=== PATIENT | female | born 1955 | race Caucasian/White ===

== ENCOUNTER 2019-03-30 11:10 | Outpatient (CLI) | payer MEDICARE, SELFPAY ==
[2019-03-30 11:29] LABS: Basophils Absolute Auto 0.05 K/mm3 (0.00-0.10); Basophils Percent Auto 0.9 % (0.0-1.0); Eosinophils Absolute Auto 0.15 K/mm3 (0.02-0.50); Eosinophils Percent Auto 2.6 % (1.0-6.0); Hematocrit 40.7 % (35.0-42.0); Hemoglobin 13.6 g/dL (11.7-13.8); Immature Granulocyte Absolute 0.01 K/mm3 (0.00-0.00); Immature Granulocyte Percent A 0.2 % (0.0-0.0); Lymphocytes Absolute Auto 2.04 K/mm3 (1.10-4.50); Lymphocytes Percent Auto 34.7 % (18.0-42.0); Mean Corpuscular HGB Conc 33.4 g/dL (32.0-36.0); Mean Corpuscular Hemoglobin 29.4 pg (27.0-31.0); Mean Corpuscular Volume 87.9 fL (78.0-102.0); Mean Platelet Volume 9.5 fl (9.2-11.8); Monocytes Absolute Auto 0.34 K/mm3 (0.10-0.90); Monocytes Percent Auto 5.8 % (2.0-11.0); Neutrophils Absolute Auto 3.3 K/mm3 (1.7-7.2); Neutrophils Percent Auto 55.8 % (50.0-70.0); Platelet Count Result 308 K/mm3 (150-420); Red Blood Count 4.63 M/mm3 (4.20-5.40); White Blood Count 5.9 K/mm3 (4.8-10.8)
[2019-03-30 11:34] LABS: Add Urine Microscopic? YES; Appearance Urine Sl Cloudy (Clear); Bilirubin Urine Negative (Negative); Blood Urine Negative (Negative); Color Urine Yellow (Yellow); Glucose Urine UA Negative (Negative); Ketones Urine Negative (Negative); Leukocyte Esterase Ur 1+ (Negative); Nitrate Urine Negative (Negative); Protein Urine Negative (Negative); pH Urine 7.5 (5.0-8.0)
[2019-03-30 12:37] LABS: Creatinine Urine 73.56 mg/dL (40-278); MALB Creatinine Ratio 8.4 mg/g (0-30); Microalbumin Urine Random 6.2 mg/L
[2019-03-30 12:49] LABS: Alanine Aminotransferase 16 U/L (14-59); Albumin Level 3.9 g/dL (3.4-5.0); Alkaline Phosphatase 78 U/L (46-116); Anion Gap 12.5 mmol/L (7-16); Aspartate Amino Transferase 13 U/L (15-37); Bilirubin,Total 0.5 mg/dL (0.00-1.00); Blood Urea Nitrogen 16 mg/dL (7-18); Carbon Dioxide 28 mmol/L (21-32); Chloride 106 mmol/L (98-108); Cholesterol 204 mg/dL (0-200); Creatine Kinase 46 U/L (26-192); Estimated Glomerular Filt Rate > 60; Free T3 2.36 pg/mL (2.18-3.98); Free T4 Free Thyroxine 0.94 ng/dL (0.76-1.46); Glucose 115 mg/dL (70-99); HDL Direct 55 mg/dL (40-60); LDL Cholesterol Calculated 130 mg/dL (<130); Osmolality Calculated 296 mOsm/kg (285-295); Potassium 4.5 mmol/L (3.5-5.1); Sodium 142 mmol/L (136-145); Thyroid Stimulating Hormone 3.57 uIU/mL (0.36-3.74); Total Protein 6.9 g/dL (6.4-8.2); Triglycerides 97 mg/dL (0-150)
[2019-03-30 13:12] LABS: RBC Urine 0-2 /hpf (0-2); WBC Urine 0-3 /hpf (0-3)
[2019-03-30 13:13] LABS: Bacteria Urine 1+ /hpf; Squamous Epithelial Cell Urine Few /hpf (Few)
[2019-03-30 13:14] LABS: Amorphous Sediment Urine Moderate; Mucus Urine Few /lpf
[2019-04-01 18:13] LABS: Vitamin D 25 Hydroxy 43 ng/mL (30-100)
== END 2019-03-30 11:11 | disposition home or self-care (01) ==
PROVIDERS: PCP Internal Medicine; Visit Provider Internal Medicine
DX: E78.2 Mixed hyperlipidemia (principal); I10 Essential (primary) hypertension; E11.9 Type 2 diabetes mellitus without complications; M81.0 Age-related osteoporosis without current pathological fracture; E03.4 Atrophy of thyroid (acquired)
CPT/HCPCS: 36415; 80053; 80061; 81001; 82043; 82306; 82550; 84439; 84443; 84481; 85025

== ENCOUNTER 2019-09-07 12:44 | Outpatient (CLI) | payer MEDICARE, OTHER, SELFPAY ==
--- NOTE | ~2019-09-07 | MM_ITS ---
EXAMINATION: MM screening [facility] BI w [place]akia HISTORY: Screening mammogram TECHNIQUE: Craniocaudal and mediolateral oblique 3-D tomosynthesis images were obtained and synthetic 2-D images were generated. CAD analysis was submitted and interpreted. COMPARISON: Comparison to multiple prior studies sequentially, with oldest reviewed study dated 05/31. BREAST PARENCHYMAL COMPOSITION: There are scattered areas of fibroglandular density. FINDINGS: There is no evidence of suspicious mass, calcification, or architectural distortion to sugg est malignancy in either breast. There has been no suspicious interval change. IMPRESSION: 1. No mammographic evidence of malignancy. 2. Recommend routine screening mammography in one year. BI-RADS Category 1: Negative Reviewed, dictated and finalized at location A.
== END 2019-09-07 12:45 | disposition home or self-care (01) ==
LOC: CHSIMG 12:45
PROVIDERS: PCP Internal Medicine; Visit Provider Internal Medicine
DX: Z12.31 Encounter for screening mammogram for malignant neoplasm of breast (principal)
CPT/HCPCS: 77063; 77067

== ENCOUNTER 2019-10-12 12:23 | Outpatient (CLI) | payer MEDICARE, BC, OTHER, SELFPAY ==
[2019-10-12 12:34] LABS: Basophils Absolute Auto 0.05 K/mm3 (0.00-0.10); Basophils Percent Auto 0.8 % (0.0-1.0); Eosinophils Absolute Auto 0.19 K/mm3 (0.02-0.50); Hematocrit 41.8 % (35.0-42.0); Hemoglobin 13.7 g/dL (11.7-13.8); Immature Granulocyte Absolute 0.02 K/mm3 (0.00-0.00); Immature Granulocyte Percent A 0.3 % (0.0-0.0); Lymphocytes Absolute Auto 2.15 K/mm3 (1.10-4.50); Mean Corpuscular HGB Conc 32.8 g/dL (32.0-36.0); Mean Corpuscular Hemoglobin 28.9 pg (27.0-31.0); Mean Corpuscular Volume 88.2 fL (78.0-102.0); Mean Platelet Volume 9.2 fl (9.2-11.8); Monocytes Absolute Auto 0.33 K/mm3 (0.10-0.90); Monocytes Percent Auto 5.2 % (2.0-11.0); Neutrophils Absolute Auto 3.6 K/mm3 (1.7-7.2); Neutrophils Percent Auto 56.7 % (50.0-70.0); Platelet Count Result 286 K/mm3 (150-420); Red Blood Count 4.74 M/mm3 (4.20-5.40); Red Cell Distribution Width 12.7 % (11.6-14.4); White Blood Count 6.3 K/mm3 (4.8-10.8)
[2019-10-12] MEDS: DENOSUMAB 60 MG/ML SYRINGE SUB-Q (12:37)
[2019-10-12 12:42] LABS: Add Urine Microscopic? YES; Appearance Urine Clear (Clear); Bilirubin Urine Negative (Negative); Blood Urine Negative (Negative); Color Urine Yellow (Yellow); Glucose Urine UA Negative (Negative); Ketones Urine Negative (Negative); Leukocyte Esterase Ur 2+ LEU/UL (Negative); Nitrate Urine Negative (Negative); Protein Urine Negative (Negative); Specific Grav Ur 1.015 (1.010-1.020)
[2019-10-12 12:49] LABS: Bacteria Urine 1+ /hpf; RBC Urine 0-2 /hpf (0-2); Squamous Epithelial Cell Urine Few /hpf (Few)
[2019-10-12 12:53] LABS: Hemoglobin A1C 6.6 % (<5.7)
[2019-10-12 13:40] LABS: Creatinine Urine 192.49 mg/dL (40-278)
[2019-10-12 13:43] LABS: MALB Creatinine Ratio 6.4 mg/g (0-30); Microalbumin Urine Random 12.4 mg/L
[2019-10-12 14:08] LABS: Alanine Aminotransferase 17 U/L (14-59); Albumin Level 3.8 g/dL (3.4-5.0); Alkaline Phosphatase 92 U/L (46-116); Anion Gap 10 mmol/L (8-16); Aspartate Amino Transferase 17 U/L (15-37); Bilirubin,Total 0.6 mg/dL (0.00-1.00); Blood Urea Nitrogen 14 mg/dL (7-18); Calcium 8.9 mg/dL (8.5-10.1); Carbon Dioxide 27 mmol/L (21-32); Chloride 105 mmol/L (98-108); Cholesterol 188 mg/dL (0-200); Creatine Kinase 69 U/L (26-192); Estimated Glomerular Filt Rate > 60; Free T3 2.15 pg/mL (2.18-3.98); Free T4 Free Thyroxine 1.12 ng/dL (0.76-1.46); Glucose 102 mg/dL (70-99); HDL Direct 47 mg/dL (40-60); LDL Cholesterol Calculated 120 mg/dL (<130); Osmolality Calculated 294 mOsm/kg (285-295); Potassium 4.3 mmol/L (3.5-5.1); Sodium 142 mmol/L (136-145); Thyroid Stimulating Hormone 2.79 uIU/mL (0.36-3.74); Total Protein 6.8 g/dL (6.4-8.2); Triglycerides 103 mg/dL (0-150)
[2019-10-19 14:42] LABS: Vitamin D 25 Hydroxy 62 ng/mL (30-100)
== END 2019-10-12 12:24 | disposition home or self-care (01) ==
LOC: CHSTREATRM 12:25
PROVIDERS: PCP Internal Medicine; Visit Provider Internal Medicine
DX: M81.0 Age-related osteoporosis without current pathological fracture (principal); E78.2 Mixed hyperlipidemia; E11.9 Type 2 diabetes mellitus without complications; R31.21 Asymptomatic microscopic hematuria; E03.4 Atrophy of thyroid (acquired); R82.90 Unspecified abnormal findings in urine
CPT/HCPCS: 36415; 80053; 80061; 81001; 82043; 82306; 82550; 83036; 84439; 84443; 84481; 85025; 87077; 87086; 87088; 96372; J0897

== ENCOUNTER 2019-12-03 10:57 | Outpatient (CLI) | payer MEDICARE, SELFPAY ==
[2019-12-03 22:31] LABS: SARS-CoV-2 RNA PCR Negative
== END 2019-12-03 10:58 | disposition home or self-care (01) ==
LOC: CHSLAB 11:00
PROVIDERS: PCP Internal Medicine; Visit Provider Internal Medicine
DX: R05 Cough (principal); J02.9 Acute pharyngitis, unspecified; Z20.828 Contact with and (suspected) exposure to other viral communicable diseases
CPT/HCPCS: 87635; C9803; U0003

== ENCOUNTER 2019-12-06 15:49 | Outpatient (CLI) | payer MEDICARE, OTHER, SELFPAY ==
--- NOTE | ~2019-12-06 | XR_ITS ---
EXAMINATION: XR chest 2V 12/06/2019 16:08 INDICATION: Cough, shortness of breath and wheezing PROCEDURE: PA and lateral views of the chest COMPARISON: Comparison to multiple prior studies sequentially, with oldest reviewed study dated 02/2015. FINDINGS: The lungs are clear. The cardiomediastinal silhouette is within normal limits. There are no pleural effusions. There is no pneumothorax suspected. Large hiatal hernia. IMPRESSION: 1: NO ACUTE CARDIOPULMONARY DISEASE. Reviewed, dictated and finalized at location B.
[2019-12-06 15:59] LABS: Basophils Absolute Auto 0.07 K/mm3 (0.00-0.10); Basophils Percent Auto 0.9 % (0.0-1.0); Eosinophils Absolute Auto 0.32 K/mm3 (0.02-0.50); Eosinophils Percent Auto 4.2 % (1.0-6.0); Hematocrit 38.6 % (35.0-42.0); Hemoglobin 12.7 g/dL (11.7-13.8); Immature Granulocyte Absolute 0.02 K/mm3 (0.00-0.00); Immature Granulocyte Percent A 0.3 % (0.0-0.0); Lymphocytes Absolute Auto 2.65 K/mm3 (1.10-4.50); Lymphocytes Percent Auto 34.9 % (18.0-42.0); Mean Corpuscular HGB Conc 32.9 g/dL (32.0-36.0); Mean Corpuscular Hemoglobin 29.3 pg (27.0-31.0); Mean Corpuscular Volume 89.1 fL (78.0-102.0); Mean Platelet Volume 9.5 fl (9.2-11.8); Monocytes Absolute Auto 0.61 K/mm3 (0.10-0.90); Neutrophils Absolute Auto 3.9 K/mm3 (1.7-7.2); Neutrophils Percent Auto 51.7 % (50.0-70.0); Platelet Count Result 289 K/mm3 (150-420); Red Blood Count 4.33 M/mm3 (4.20-5.40); Red Cell Distribution Width 13.2 % (11.6-14.4); White Blood Count 7.6 K/mm3 (4.8-10.8)
[2019-12-06 16:31] LABS: Alanine Aminotransferase 20 U/L (14-59); Albumin Level 3.8 g/dL (3.4-5.0); Alkaline Phosphatase 101 U/L (46-116); Aspartate Amino Transferase 10 U/L (15-37); Bilirubin,Total 0.5 mg/dL (0.00-1.00); Blood Urea Nitrogen 11 mg/dL (7-18); Calcium 8.8 mg/dL (8.5-10.1); Carbon Dioxide 28 mmol/L (21-32); Estimated Glomerular Filt Rate > 60; Glucose 78 mg/dL (70-99); Total Protein 6.8 g/dL (6.4-8.2)
[2019-12-06 16:41] LABS: Anion Gap 9 mmol/L (8-16); Chloride 105 mmol/L (98-108); Osmolality Calculated 292 mOsm/kg (285-295); Potassium 3.9 mmol/L (3.5-5.1); Sodium 142 mmol/L (136-145)
== END 2019-12-06 15:50 | disposition home or self-care (01) ==
LOC: CHSLAB 15:51
PROVIDERS: PCP Internal Medicine; Visit Provider Internal Medicine
DX: R05 Cough (principal); R06.2 Wheezing
CPT/HCPCS: 36415; 71046; 80053; 85025

== ENCOUNTER 2019-12-13 14:35 | Outpatient (CLI) | payer MEDICARE, SELFPAY ==
[2019-12-14 14:10] LABS: SARS-CoV-2 RNA PCR Negative
== END 2019-12-13 14:36 | disposition home or self-care (01) ==
LOC: CHSLAB 14:37
PROVIDERS: PCP Internal Medicine; Visit Provider Internal Medicine
DX: Z20.828 Contact with and (suspected) exposure to other viral communicable diseases (principal)
CPT/HCPCS: 87635; C9803; U0003

== ENCOUNTER 2020-01-12 12:11 | Outpatient (CLI) | payer MEDICARE, SELFPAY ==
[2020-01-12 12:58] LABS: SARS-CoV-2 Ag Negative (Negative)
== END 2020-01-12 12:12 | disposition home or self-care (01) ==
LOC: CHSLAB 12:13
PROVIDERS: PCP Internal Medicine; Visit Provider Internal Medicine
DX: Z20.828 Contact with and (suspected) exposure to other viral communicable diseases (principal)
CPT/HCPCS: 87426

== ENCOUNTER 2020-01-18 16:24 | Outpatient (CLI) | payer MEDICARE, SELFPAY ==
[2020-01-18 17:49] LABS: SARS-CoV-2 Ag Positive (Negative)
== END 2020-01-18 16:25 | disposition home or self-care (01) ==
LOC: CHSLAB 16:27
PROVIDERS: PCP Internal Medicine; Visit Provider Internal Medicine
DX: U07.1 COVID-19 (principal)
CPT/HCPCS: 87426

== ENCOUNTER 2020-01-25 13:34 | Emergency (ER) | payer MEDICARE, OTHER, SELFPAY ==
[2020-01-25] VITALS (8 sets, daily range): BP systolic 131–147; BP diastolic 78–89; PULSE 78–97; RESP 18–27; TEMP 36.7; O2SAT 95–99
--- NOTE | ~2020-01-25 | CT_ITS ---
EXAMINATION: CTA chest PE protocol DATE: 01/25/2020 15:13 INDICATION: Shortness of breath. COVID-19 positive. TECHNIQUE: Computed tomography angiography (CTA) of the chest was performed with 100 mL Omnipaque-350 intravenous contrast timed to evaluate the pulmonary arteries. Coronal maximum intensity projection 3D-reconstructions were created by the technologist. Automated exposure control and iterative reconst ruction technique were employed. The dose-length product was 220.98 mGy-cm. COMPARISON: Chest single view 01/25/2020 FINDINGS: There are patchy airspace and groundglass opacities in the mid and lower lung zones. Calcif ied pulmonary nodules and calcified hilar lymph nodes are consistent with old granulomatous disease. No pleural effusion. The heart size is normal. No pericardial effusion. There is a large sliding hiat al hernia. There is no pulmonary embolus. There are changes of cholecystectomy. 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 There is a chronic compression fracture of T8. IMPRESSION: 1. No pulmonary embolism. 2. Patchy airspace and groundglass opacities in the mid and lower lung zones, consistent with COVID-1 9 pneumonia. 3. Large sliding hiatal hernia. Reviewed, dictated and finalized at location B. F CARRIER IMPRESSION: 1. No pulmonary embolism. 2. Patchy airspace and groundglass opacities in the mid and lower lung zones, c onsistent with COVID-19 pneumonia. 3. Large sliding hiatal hernia.
--- NOTE | ~2020-01-25 | XR_ITS ---
EXAMINATION: XR chest 1V portable DATE: 01/25/2020 14:20 INDICATION: Cough. TECHNIQUE: A single frontal view of the chest was obtained. COMPARISON: Chest 2 views 12/06/2019, CT abdomen and pelvis 01/29/2016 FINDINGS: There are mild airspace opacities in right lower lung zone and left mid and lower lung zone s. No pleural effusion or pneumothorax. The heart size is normal. There is a large hiatal hernia. David gical clips in the right upper quadrant are likely from cholecystectomy. IMPRESSION: 1. Mild airspace opacities in right lower lung zone and left mid and lower lung zones, consistent wit h atelectasis versus pneumonia 2. Large hiatal hernia. Reviewed, dictated and finalized at location B. ET ENGINE TESTER IMPRESSION: 1. Mild airspace opacities in right lower lung zone and left mid and lower lung zones, consistent with atelectasis versus pneumonia 2. Large hiatal hernia.
[2020-01-25 14:05] LABS: Basophils Percent Auto 0.5 % (0.2-1.2); Eosinophils Absolute Auto 0.1 K/mm3 (0-0.3); Eosinophils Percent Auto 1.5 % (0-4.4); Hemoglobin 15.2 g/dL (12.0-15.0); Immature Granulocyte Absolute 0.03 K/mm3 (0.00-0.031); Immature Granulocyte Percent A 0.4 % (0-0.5); Lymphocytes Absolute Auto 2.54 K/mm3 (0.9-3.2); Lymphocytes Percent Auto 32.4 % (18.3-44.2); Mean Corpuscular HGB Conc 34.5 g/dl (32-36); Mean Corpuscular Hemoglobin 29.5 pg (26-34); Mean Corpuscular Volume 85.4 fl (80-100); Mean Platelet Volume 9.7 fl (7.4-10.4); Monocytes Absolute Auto 0.4 K/mm3 (0.1-0.6); Monocytes Percent Auto 5.6 % (2.6-8.5); Neutrophils Absolute Auto 4.7 K/mm3 (1.3-6.7); Neutrophils Percent Auto 59.6 % (45.5-73.1); Platelet Count Result 300 k/mm3 (150-375); Red Blood Count 5.15 M/mm3 (4.2-5.4); Red Cell Distribution Width 13.1 % (11.5-14.5); White Blood Count 7.9 K/mm3 (4.5-10.0)
[2020-01-25 14:15] LABS: INR 0.9; Prothrombin Time 13.2 Seconds (11.1-14.7)
[2020-01-25 14:17] LABS: Alanine Aminotransferase 17 U/L (4-35); Albumin Level 4.1 g/dL (3.5-5.1); Alkaline Phosphatase 93 U/L (38-126); Anion Gap 10 mmol/L (8-16); Aspartate Amino Transferase 30 U/L (14-36); Bilirubin,Total 0.9 mg/dL (0.2-1.3); Blood Urea Nitrogen 14 mg/dL (7-17); Calcium 9.7 mg/dL (8.4-10.2); Carbon Dioxide 25 mmol/L (22-30); Chloride 107 mmol/L (98-107); Estimated CRCL calculation 57 ml/min; Estimated Glomerular Filt Rate > 60; Glucose 96 mg/dL (65-105); Potassium 3.8 mmol/L (3.4-5.0); Sodium 142 mmol/L (137-145)
[2020-01-25 14:28] LABS: Troponin I < 0.012 ng/mL (0.000-0.034)
[2020-01-25 14:48] LABS: D Dimer 0.59 ug/mL (<0.48)
--- NOTE | 2020-01-25 16:25 | ED.URI ---
HPI - URI/Sore Throat General Chief Complaint: Upper Respiratory Infection Stated Complaint: COVID POSTIVE NEEDS CHEST XRAY Time Seen by Provider: 01/25/20 13:59 Source: patient Mode of arrival: ambulatory Limitations: no limitations History of Present Illness HPI Narrative: Patient 64-year-old female complaining of cough, body aches, fever and shortness of breath started 3 days ago, tested positive for Covid yesterday, was told by her PCP to go to the emergency room and get a chest x-ray. Patient denies any chest pain, dull pain, nausea, vomiting, diarrhea or rash. Related Data Allergies Allergy/AdvReac Type Severity Reaction Status Date / Time erythromycin base Allergy Unknown VOMITING Verified 04/09/18 09:26 AND DIARRHEA thiopental Allergy Unknown SODIUM Verified 04/09/18 14:16 PENTOTHAL- DENTIST SAID I STOPPED BREATHING Review of Systems Review of Systems: All systems reviewed & are unremarkable except as noted in HPI and below Constitutional: Constitutional: Denies body ache(s), Denies chills, Denies excessive sweating, Denies headache(s), Denies lethargy and Denies weight loss Eyes: Eyes: Denies blurry vision, Denies change in vision and Denies loss of vision ENT: Denies dizziness, Denies ear discharge, Denies headache(s), Denies lip swelling, Denies epistaxis, Denies nasal congestion, Denies neck pain, Denies throat swelling and Denies tongue swelling Cardiovascular: Cardiovascular: Denies chest pain, Denies chest pain at rest, Denies chest pain with activity, Denies diaphoresis, Denies rapid heart rate, Denies edema, Denies irregular heart rhythm, Denies lightheadedness, Denies palpitations, Denies dyspnea and Denies dyspnea on exertion Respiratory: Respiratory: Denies chest congestion and Denies hemoptysis Gastrointestinal: Gastrointestinal: Denies abdominal pain, Denies melena, Denies hematochezia, Denies diarrhea, Denies nausea, Denies vomiting and Denies hematemesis Musculoskeletal: Musculoskeletal: Denies abnormal gait, Denies deformity, Denies joint swelling, Denies limited range of motion, Denies neck pain and Denies numbness Neurologic: Denies Abnormal speech present, Denies abnormal gait, Denies confusion, Denies dizziness, Denies headache(s), Denies focal weakness, Denies loss of vision, Denies numbness, Denies Other visual disturbances, Denies Sensory deficit (Neuro) and Denies weakness Psychiatric: Psychiatric: Denies confusion, Denies depression, Denies auditory hallucinations, Denies homicidal ideation and Denies suicidal ideation Endocrine: Endocrine: Denies cold intolerance, Denies excessive sweating, Denies fatigue, Denies heat intolerance and Denies palpitations Hematologic/Lymphatic: Hematologic/Lymphatic: Denies easy bleeding and Denies easy bruising Allergic/Immunologic: Allergic/Immunologic: Denies lip swelling, Denies throat swelling and Denies tongue swelling Exam Const: General: cooperative, healthy appearing, comfortable, no acute distress, well developed, alert and awake; No confusion Orientation/consciousness: oriented to person, oriented to place, oriented to time, patient oriented x3 and No confusion Limitations: no limitations HENMT: Head: normal to inspection, normocephalic and atraumatic Ears: hearing grossly normal bilaterally, TM normal on the right and TM normal on the left General nose exam: Normal external nose present, Normal nares present and No nasal discharge present Face and sinus: normal facial exam Mouth: Yes Normal oral and palatal mucosa present, Yes lip normal, Yes tongue normal and Yes oropharynx normal Throat: posterior oropharynx normal, tonsils normal and uvula midline Eyes: General: appearance normal, both eyes and all related structures Pupils: Equal, round and reactive pupils present EOM: EOMs intact bilaterally Neck: Neck: normal visual inspection, full ROM, no lymphadenopathy and no meningeal signs Chest: Chest palpatio
--- NOTE | 2020-01-25 17:53 | ECG_ITS ---
Measurements Intervals [place] Rate: 89 P: 30 MA: 144 QRS: -4 QRSD: 84 T: 35 QT: 342 QTc: 416 Interpretive Statements SINUS RHYTHM NORMAL ECG Electronically Signed On 01-26-2020 7:50:28 LAMP TESTER AND INSPECTOR by Shine Escamilla D.O.
== END 2020-01-25 17:14 | disposition home or self-care (01) ==
PROVIDERS: Emergency Provider Emergency Medicine; PCP Internal Medicine
DX: U07.1 COVID-19 (principal); J12.89 Other viral pneumonia
CPT/HCPCS: 36415; 71045; 71275; 80053; 84484; 85025; 85380; 85610; 85730; 93005; 96374; 99284; J1100; Q9967

== ENCOUNTER 2020-01-28 11:03 | Outpatient (CLI) | payer MEDICARE, SELFPAY | END 2020-01-28 11:04 | disposition home or self-care (01) | LOC: CHSLAB 11:05 | PROVIDERS: PCP Internal Medicine; Visit Provider Internal Medicine | DX: J02.9 Acute pharyngitis, unspecified (principal) | CPT/HCPCS: 87081; 87880 ==

== ENCOUNTER 2020-04-17 10:33 | Outpatient (CLI) | payer MEDICARE, SELFPAY ==
[2020-04-17 10:53] LABS: Add Urine Microscopic? YES; Appearance Urine Clear (Clear); Bilirubin Urine Negative (Negative); Blood Urine Negative (Negative); Color Urine Yellow (Yellow); Glucose Urine UA Negative (Negative); Ketones Urine Negative (Negative); Leukocyte Esterase Ur 1+ (Negative); Nitrate Urine Negative (Negative); Protein Urine Negative (Negative); Urobilinogen Urine 0.2 mg/dL (0.2-1.0)
[2020-04-17 10:59] LABS: MALB Creatinine Ratio 12.8 mg/g (0-30); Microalbumin Urine Random < 13.0 mg/L
[2020-04-17 11:04] LABS: Hemoglobin A1C 6.2 % (<5.7)
[2020-04-17 11:11] LABS: Bacteria Urine 1+ /hpf; RBC Urine 0-2 /hpf (0-2); Squamous Epithelial Cell Urine Many /hpf (Few)
[2020-04-17 12:05] LABS: Alanine Aminotransferase 22 U/L (14-59); Albumin Level 3.9 g/dL (3.4-5.0); Alkaline Phosphatase 87 U/L (46-116); Anion Gap 11 mmol/L (8-16); Aspartate Amino Transferase 15 U/L (15-37); Bilirubin,Total 0.5 mg/dL (0.00-1.00); Blood Urea Nitrogen 12 mg/dL (7-18); Carbon Dioxide 27 mmol/L (21-32); Chloride 103 mmol/L (98-108); Cholesterol 182 mg/dL (0-200); Creatine Kinase 47 U/L (26-192); Estimated Glomerular Filt Rate > 60; Free T3 2.19 pg/mL (2.18-3.98); Free T4 Free Thyroxine 1.02 ng/dL (0.76-1.46); Glucose 112 mg/dL (70-99); HDL Direct 47 mg/dL (40-60); LDL Cholesterol Calculated 108 mg/dL (<130); Osmolality Calculated 292 mOsm/kg (285-295); Sodium 141 mmol/L (136-145); Thyroid Stimulating Hormone 3.07 uIU/mL (0.36-3.74); Total Protein 6.6 g/dL (6.4-8.2); Triglycerides 137 mg/dL (0-150)
[2020-04-19 21:24] LABS: Vitamin D 25 Hydroxy 49 ng/mL (30-100)
== END 2020-04-17 10:34 | disposition home or self-care (01) ==
LOC: CHSLAB 10:35
PROVIDERS: PCP Internal Medicine; Visit Provider Internal Medicine
DX: E11.9 Type 2 diabetes mellitus without complications (principal); I10 Essential (primary) hypertension; E78.2 Mixed hyperlipidemia; M81.0 Age-related osteoporosis without current pathological fracture
CPT/HCPCS: 36415; 80053; 80061; 81001; 82043; 82306; 82550; 83036; 84439; 84443; 84481

== ENCOUNTER 2020-08-31 16:48 | Outpatient (CLI) | payer MEDICARE, OTHER, SELFPAY ==
--- NOTE | ~2020-08-31 | CT_ITS ---
EXAMINATION: CT soft tissue neck w con DATE: 08/31/2020 17:54 INDICATION: Acute lymphadenitis. Right parotid abscess. TECHNIQUE: Computed tomography (CT) of the neck was performed with 75 mL Omnipaque-350 intravenous co ntrast. Automated exposure control and iterative reconstruction technique were employed. The dose-ejssica gth product was 482.12 mGy-cm. COMPARISON: 07/29/2018 FINDINGS: Again seen is asymmetric swelling and subtle increased density of the right parotid gland relative to the left consistent with proctitis which is significantly less severe than on the prior study. No ev idence sialolithiasis, ductal dilation or abscess. Asymmetric mildly enlarged right-sided level 2A an d 2B lymph nodes which are likely reactive. Calcifications at the bilateral lingual tonsils. Paraphar yngeal soft tissues are otherwise unremarkable with no narrowing of the airway. The thyroid and bilat eral submandibular glands are normal. Minimal atherosclerotic calcific a cyst at the bilateral caroti d bulbs without stenosis. Left vertebral artery is dominant and appears to be the exclusive supply of the basilar artery. The vascular the neck is otherwise unremarkable. Mastoid air cells, middle ear c avities and visualized portions of the paranasal sinuses are clear. Mild to moderate cervical spondyl osis. Visualized portions of the upper lungs and mediastinum are unremarkable. IMPRESSION: 1. Right parotitis, relatively mild compared with earlier episode and without evident abscess. 2. Mild likely reactive level 2A and 2B right cervical lymphadenopathy. Reviewed, dictated and finalized at location A. IMPRESSION: 1. Right parotitis, relatively mild compared with earlier episode and without e vident abscess. 2. Mild likely reactive level 2A and 2B right cervical lymphadenopathy.
[2020-08-31 17:10] LABS: Basophils Absolute Auto 0.05 K/mm3 (0.00-0.10); Basophils Percent Auto 0.6 % (0.0-1.0); Eosinophils Absolute Auto 0.12 K/mm3 (0.02-0.50); Eosinophils Percent Auto 1.4 % (1.0-6.0); Hematocrit 35.9 % (35.0-42.0); Hemoglobin 12.1 g/dL (11.7-13.8); Immature Granulocyte Absolute 0.01 K/mm3 (0.00-0.00); Immature Granulocyte Percent A 0.1 % (0.0-0.0); Lymphocytes Absolute Auto 2.13 K/mm3 (1.10-4.50); Lymphocytes Percent Auto 25.6 % (18.0-42.0); Mean Corpuscular HGB Conc 33.7 g/dL (32.0-36.0); Mean Corpuscular Hemoglobin 29.7 pg (27.0-31.0); Mean Platelet Volume 9.6 fl (9.2-11.8); Monocytes Absolute Auto 0.63 K/mm3 (0.10-0.90); Monocytes Percent Auto 7.6 % (2.0-11.0); Neutrophils Absolute Auto 5.4 K/mm3 (1.7-7.2); Neutrophils Percent Auto 64.7 % (50.0-70.0); Platelet Count Result 277 K/mm3 (150-420); Red Blood Count 4.08 M/mm3 (4.20-5.40); Red Cell Distribution Width 13.1 % (11.6-14.4); White Blood Count 8.3 K/mm3 (4.8-10.8)
[2020-08-31 17:22] LABS: Estimated Glomerular Filt Rate 60
[2020-08-31 18:29] LABS: Alanine Aminotransferase 19 U/L (14-59); Albumin Level 3.7 g/dL (3.4-5.0); Alkaline Phosphatase 108 U/L (46-116); Anion Gap 10 mmol/L (8-16); Aspartate Amino Transferase 12 U/L (15-37); Bilirubin,Total 0.5 mg/dL (0.00-1.00); Blood Urea Nitrogen 13 mg/dL (7-18); Calcium 9.3 mg/dL (8.5-10.1); Carbon Dioxide 26 mmol/L (21-32); Chloride 105 mmol/L (98-108); Glucose 83 mg/dL (70-99); Osmolality Calculated 291 mOsm/kg (285-295); Potassium 3.9 mmol/L (3.5-5.1); Sodium 141 mmol/L (136-145)
== END 2020-08-31 16:49 | disposition home or self-care (01) ==
LOC: CHSLAB 16:50
PROVIDERS: PCP Internal Medicine; Visit Provider Internal Medicine
DX: I88.9 Nonspecific lymphadenitis, unspecified (principal); K11.3 Abscess of salivary gland
CPT/HCPCS: 36415; 70491; 80053; 85025; 87040; Q9967

== ENCOUNTER 2020-10-04 13:38 | Outpatient (CLI) | payer MEDICARE, OTHER, SELFPAY ==
--- NOTE | ~2020-10-04 | XR_ITS ---
XR chest 2V DATE: 10/04/2020 18:27 INDICATION: Central chest pain, shortness of breath, cough for 2 days TECHNIQUE: PA and lateral views COMPARISON: 01/25/2020 CT pulmonary scan 01/25/2020 portable AP chest 12/06/2019 PA and lateral chest FINDINGS: Normal heart size. Large hiatal hernia. No hilar or mediastinal enlargement. No pulmonary infiltrate or consolidation, pleural effusion or pulmonary vascular congestion or pneumo thorax. Diffuse osteopenia. Status post cholecystectomy. IMPRESSION: No active cardiopulmonary disease Large hiatal hernia Reviewed, dictated and finalized at location A.
[2020-10-04 14:39] LABS: SARS-CoV-2 RNA PCR Negative (Negative)
== END 2020-10-04 13:39 | disposition home or self-care (01) ==
LOC: CHSLAB 13:41 → CHSIMG 18:17
PROVIDERS: PCP Internal Medicine; Visit Provider Internal Medicine
DX: R05 Cough (principal); J06.9 Acute upper respiratory infection, unspecified; Z20.822 Contact with and (suspected) exposure to COVID-19
CPT/HCPCS: 71046; C9803; U0003; U0005

== ENCOUNTER 2020-10-31 08:03 | Outpatient (CLI) | payer MEDICARE, OTHER, SELFPAY ==
--- NOTE | ~2020-10-31 | DEXA_ITS ---
Bone Density Report Name: Mariann Jacques Age: 65 Sex: Female Ethnicity: White Date of : 1955 Indication: osteopenia; monitoring treatment; height loss; prior fracture; asthma or emphysema; hysterectomy; rheumatoid arthritis; postmenopausal Referring Provider: Mary Nguyen Study: Bone densitometry was performed. Exam Date: October 31, 2020 Accession number: [id number] Bone Density: Region BMD T-score Z-score Classification AP Spine(L1, L2) 0.677 -2.7 -1.0 Osteoporosis Femoral Neck (Left) 0.574 -2.5 -0.9 Osteoporosis Total Hip (Left) 0.721 -1.8 -0.5 Osteopenia Femoral Neck (Right) 0.581 -2.4 -0.8 Osteopenia Total Hip (Right) 0.725 -1.8 -0.5 Osteopenia Femoral Neck Mean 0.577 -2.4 -0.8 Osteopenia Total Hip Mean 0.723 -1.8 -0.5 Osteopenia World Health Organization criteria for BMD impression classify patients as: Normal (T-score at or above -1.0), Osteopenia (T-score between -1.0 and -2.5), or Osteoporosis (T-score at or below -2.5). 10-year Fracture Risk: FRAX not reported because: Some T-score for Spine Total or Hip Total or Femoral Neck at or below -2.5 Prior hip or vertebral fracture Treated for osteoporosis Previous Exams: Region Exam Age BMD T-score BMD Change BMD Change Date g/cm2 vs Baseline vs Previous AP Spine (L1-L2) 10/31/2020 65 0.677 -2.7 -0.048 (-6.7%) -0.048 (-6.7%) 09/02/2012 57 0.725 -2.3 Total Hip(Left) 10/31/2020 65 0.721 -1.8 0.000 (0.0%)# 0.000 (0.0%)# 09/02/2012 57 0.721 -1.8 Total Hip(Right) 10/31/2020 65 0.725 -1.8 0.013 (1.8%)# 0.013 (1.8%)# 09/02/2012 57 0.712 -1.9 *Denotes significance at 95% confidence level, LSC for AP Spine = 0.022 g/cm2, LSC for Total Hip = 0.027 g/cm2 # Denotes dissimilar scan types or analysis methods Clinical Information Provided by Patient: Have had a previous hip or vertebral fracture Has had a low trauma fracture Has rheumatoid arthritis Is being treated for osteoporosis Has the following medical conditions: Asthma or Emphysema, Hysterectomy Patient maximum height was 61 Menopause Age: 39 No regular weight bearing exercise Drinks caffeinated beverages Onset of menses at age 14 Number of children 3 Impression: The patient has established osteoporosis, based on the Total Spine T-score and the existence of a prior fracture. The patient has risk factors, including: previous fracture. No significant bone loss was observed.
--- NOTE | ~2020-10-31 | MM_ITS ---
EXAMINATION: MM screening [facility] BI w nakia HISTORY: Screening TECHNIQUE: Craniocaudal and mediolateral oblique 3-D tomosynthesis images were obtained and synthetic 2-D images were generated. CAD analysis was submitted and interpreted. COMPARISON: Comparison to multiple prior studies sequentially, with oldest reviewed study dated 04/2011. BREAST PARENCHYMAL COMPOSITION: There are scattered areas of fibroglandular density. FINDINGS: There is no evidence of suspicious mass, calcification, or architectural distortion to sugg est malignancy in either breast. There has been no suspicious interval change. IMPRESSION: 1. No mammographic evidence of malignancy. 2. Recommend routine screening mammography in one year. BI-RADS Category 1: Negative Reviewed, dictated and finalized at location A.
[2020-10-31 09:18] LABS: Basophils Absolute Auto 0.05 K/mm3 (0.00-0.10); Basophils Percent Auto 0.9 % (0.0-1.0); Eosinophils Absolute Auto 0.19 K/mm3 (0.02-0.50); Eosinophils Percent Auto 3.4 % (1.0-6.0); Hematocrit 38.8 % (35.0-42.0); Hemoglobin 12.8 g/dL (11.7-13.8); Immature Granulocyte Absolute 0.01 K/mm3 (0.00-0.00); Immature Granulocyte Percent A 0.2 % (0.0-0.0); Lymphocytes Absolute Auto 1.47 K/mm3 (1.10-4.50); Lymphocytes Percent Auto 26.6 % (18.0-42.0); Mean Corpuscular Hemoglobin 29.4 pg (27.0-31.0); Mean Corpuscular Volume 89.2 fL (78.0-102.0); Monocytes Absolute Auto 0.32 K/mm3 (0.10-0.90); Monocytes Percent Auto 5.8 % (2.0-11.0); Neutrophils Absolute Auto 3.5 K/mm3 (1.7-7.2); Neutrophils Percent Auto 63.1 % (50.0-70.0); Platelet Count Result 294 K/mm3 (150-420); Red Blood Count 4.35 M/mm3 (4.20-5.40); Red Cell Distribution Width 12.7 % (11.6-14.4); White Blood Count 5.5 K/mm3 (4.8-10.8)
[2020-10-31 09:20] LABS: Add Urine Microscopic? YES; Appearance Urine Clear (Clear); Bilirubin Urine Negative (Negative); Blood Urine Negative (Negative); Color Urine Light Yellow (Yellow); Glucose Urine UA Negative (Negative); Ketones Urine Negative (Negative); Leukocyte Esterase Ur Trace LEU/UL (Negative); Nitrate Urine Negative (Negative); Protein Urine Negative (Negative); Urobilinogen Urine 0.2 mg/dL (0.2-1.0)
[2020-10-31 09:27] LABS: Creatinine Urine 98.95 mg/dL (40-278); MALB Creatinine Ratio 13.1 mg/g (0-30); Microalbumin Urine Random < 13.0 mg/L
[2020-10-31 09:31] LABS: Hemoglobin A1C 5.5 % (<5.7)
[2020-10-31 09:37] LABS: Bacteria Urine Trace /hpf; RBC Urine None seen /hpf (0-2); Squamous Epithelial Cell Urine Few /hpf (Few); WBC Urine 0-3 /hpf (0-3)
[2020-10-31 10:19] LABS: Alanine Aminotransferase 28 U/L (14-59); Alkaline Phosphatase 81 U/L (46-116); Anion Gap 8 mmol/L (8-16); Aspartate Amino Transferase 15 U/L (15-37); Bilirubin,Total 0.4 mg/dL (0.00-1.00); Blood Urea Nitrogen 14 mg/dL (7-18); Calcium 9.1 mg/dL (8.5-10.1); Carbon Dioxide 30 mmol/L (21-32); Chloride 105 mmol/L (98-108); Cholesterol 174 mg/dL (0-200); Creatine Kinase 61 U/L (26-192); Estimated Glomerular Filt Rate > 60; Free T3 1.61 pg/mL (2.18-3.98); Free T4 Free Thyroxine 1.17 ng/dL (0.76-1.46); Glucose 100 mg/dL (70-99); HDL Direct 48 mg/dL (40-60); LDL Cholesterol Calculated 106 mg/dL (<130); Osmolality Calculated 296 mOsm/kg (285-295); Potassium 4.5 mmol/L (3.5-5.1); Sodium 143 mmol/L (136-145); Thyroid Stimulating Hormone 2.87 uIU/mL (0.36-3.74); Total Protein 6.5 g/dL (6.4-8.2); Triglycerides 100 mg/dL (0-150)
[2020-11-03 13:25] LABS: Vitamin D 25 Hydroxy 69 ng/mL (30-100)
== END 2020-10-31 08:04 | disposition home or self-care (01) ==
PROVIDERS: PCP Internal Medicine; Visit Provider Internal Medicine
DX: M81.0 Age-related osteoporosis without current pathological fracture (principal); E11.9 Type 2 diabetes mellitus without complications; R31.21 Asymptomatic microscopic hematuria; E03.4 Atrophy of thyroid (acquired); Z12.31 Encounter for screening mammogram for malignant neoplasm of breast
CPT/HCPCS: 36415; 77063; 77067; 77080; 80053; 80061; 81001; 82043; 82306; 82550; 83036; 84439; 84443; 84481; 85025

== ENCOUNTER 2021-04-24 10:33 | Outpatient (CLI) | payer MEDICARE, SELFPAY ==
[2021-04-24 10:50] LABS: Basophils Absolute Auto 0.05 K/mm3 (0.00-0.10); Basophils Percent Auto 0.9 % (0.0-1.0); Eosinophils Absolute Auto 0.22 K/mm3 (0.02-0.50); Eosinophils Percent Auto 3.7 % (1.0-6.0); Hemoglobin 13.5 g/dL (11.7-13.8); Immature Granulocyte Absolute 0.01 K/mm3 (0.00-0.00); Immature Granulocyte Percent A 0.2 % (0.0-0.0); Lymphocytes Absolute Auto 2.16 K/mm3 (1.10-4.50); Lymphocytes Percent Auto 36.7 % (18.0-42.0); Mean Corpuscular HGB Conc 32.9 g/dL (32.0-36.0); Mean Corpuscular Hemoglobin 29.2 pg (27.0-31.0); Mean Corpuscular Volume 88.7 fL (78.0-102.0); Monocytes Percent Auto 5.1 % (2.0-11.0); Neutrophils Absolute Auto 3.1 K/mm3 (1.7-7.2); Neutrophils Percent Auto 53.4 % (50.0-70.0); Platelet Count Result 329 K/mm3 (150-420); Red Blood Count 4.62 M/mm3 (4.20-5.40); Red Cell Distribution Width 12.8 % (11.6-14.4); White Blood Count 5.9 K/mm3 (4.8-10.8)
[2021-04-24 11:18] LABS: Add Urine Microscopic? YES; Appearance Urine Clear (Clear); Bilirubin Urine Negative (Negative); Blood Urine Negative (Negative); Color Urine Light Yellow (Yellow); Glucose Urine UA Negative (Negative); Ketones Urine Negative (Negative); Leukocyte Esterase Ur Trace (Negative); Nitrate Urine Negative (Negative); Protein Urine Negative (Negative); Specific Grav Ur 1.015 (1.010-1.020); Urobilinogen Urine 0.2 mg/dL (0.2-1.0)
[2021-04-24 11:37] LABS: Bacteria Urine Trace /hpf; RBC Urine None seen /hpf (0-2); Squamous Epithelial Cell Urine Few /hpf (Few); WBC Urine 0-3 /hpf (0-3)
[2021-04-24 11:48] LABS: Alanine Aminotransferase 17 U/L (14-59); Albumin Level 3.9 g/dL (3.4-5.0); Alkaline Phosphatase 102 U/L (46-116); Anion Gap 9 mmol/L (8-16); Aspartate Amino Transferase 12 U/L (15-37); Bilirubin,Total 0.4 mg/dL (0.00-1.00); Blood Urea Nitrogen 12 mg/dL (7-18); Calcium 8.9 mg/dL (8.5-10.1); Carbon Dioxide 31 mmol/L (21-32); Chloride 104 mmol/L (98-108); Cholesterol 174 mg/dL (0-200); Estimated Glomerular Filt Rate > 60; Free T3 2.23 pg/mL (2.18-3.98); Free T4 Free Thyroxine 1.11 ng/dL (0.76-1.46); Glucose 115 mg/dL (70-99); HDL Direct 53 mg/dL (40-60); LDL Cholesterol Calculated 89 mg/dL (<130); Osmolality Calculated 298 mOsm/kg (285-295); Potassium 4.1 mmol/L (3.5-5.1); Sodium 144 mmol/L (136-145); Total Protein 6.7 g/dL (6.4-8.2); Triglycerides 158 mg/dL (0-150); Vitamin B12 488 pg/mL (193-986)
[2021-04-26 15:47] LABS: Vitamin D 25 Hydroxy 57 ng/mL (30-100)
== END 2021-04-24 10:34 | disposition home or self-care (01) ==
LOC: CHSLAB 10:35
PROVIDERS: PCP Internal Medicine; Visit Provider Internal Medicine
DX: E11.9 Type 2 diabetes mellitus without complications (principal); M81.0 Age-related osteoporosis without current pathological fracture; E78.2 Mixed hyperlipidemia; E03.4 Atrophy of thyroid (acquired); R41.89 Other symptoms and signs involving cognitive functions and awareness
CPT/HCPCS: 36415; 80053; 80061; 81001; 82306; 82607; 83036; 84439; 84443; 84481; 85025

== ENCOUNTER 2021-05-02 09:25 | Outpatient (CLI) | payer MEDICARE, OTHER, SELFPAY ==
--- NOTE | ~2021-05-02 | US_ITS ---
EXAMINATION: US right upper quadrant DATE: 05/02/2021 09:46 INDICATION: Epigastric abdominal pain. Right upper quadrant abdominal pain. TECHNIQUE: Multiple grayscale and Doppler ultrasound images of the abdomen were obtained. COMPARISON: Chest CT 01/25/2020 FINDINGS: The visualized portions of the head and body of the pancreas are normal. The liver is marquita l without focal lesion. There is normal flow in main portal vein. The gallbladder is absent. The comm on duct is normal and measures 3 mm. IMPRESSION: 1. Normal right upper quadrant ultrasound status post cholecystectomy. Reviewed, dictated and finalized at location A.
== END 2021-05-02 09:26 | disposition home or self-care (01) ==
LOC: CHSIMG 09:26
PROVIDERS: PCP Internal Medicine; Visit Provider Internal Medicine
DX: R10.13 Epigastric pain (principal); R10.11 Right upper quadrant pain
CPT/HCPCS: 76705

== ENCOUNTER 2021-05-08 12:47 | Outpatient (CLI) | payer MEDICARE, OTHER, SELFPAY ==
[2021-05-08 12:54] VITALS: BMI 28.3
[2021-05-08 12:57] VITALS: BP 135/72; PULSE 92; RESP 14; TEMP 36.5; O2SAT 97
[2021-05-08] MEDS: DENOSUMAB 60 MG/ML SYRINGE SUB-Q (13:01)
--- NOTE | 2021-05-08 13:06 | PC.NURSE ---
Patient here for Prolia injection. Didn't get it last year r/t covid, but had in 2019. Education given on med. No concerns voiced. Prolia injection administered. Tolerated well. Safe exit of hospital.
== END 2021-05-08 12:48 | disposition home or self-care (01) ==
PROVIDERS: PCP Internal Medicine; Visit Provider Internal Medicine
DX: M81.0 Age-related osteoporosis without current pathological fracture (principal)
CPT/HCPCS: 96372; J0897

== ENCOUNTER 2021-05-18 02:06 | Day surgery (SDC) | payer MEDICARE, OTHER, SELFPAY ==
[2021-05-09 10:47] VITALS: BMI 28.3
--- NOTE | 2021-05-18 10:45 | WPDANESEPPF ---
Anes - Initial Pre Proc Eval Procedure: Operation Date: 05/18/21 13:30 Proposed Procedures p Esophagogastroduodenoscopy - Guerrero Vail MD Date/Time: 05/18/21 10:45 Surgeon: Guerrero Vail MD Pre Op Diagnosis: GERD Patient Data Age: 66 Gender: F Height: 1.55 m Weight: 68.1 kg Allergies Allergy/AdvReac Type Severity Reaction Status Date / Time erythromycin base Allergy Unknown VOMITING Verified 05/18/21 12:18 AND DIARRHEA thiopental Allergy Unknown SODIUM Verified 05/18/21 12:18 PENTOTHAL- DENTIST SAID I STOPPED BREATHING Home Medications Medication Instructions Recorded Confirmed Type levothyroxine 75 mcg PO DAILY 05/08/21 05/18/21 History lovastatin 20 mg PO DAILY 05/08/21 05/09/21 History metformin 500 mg PO BID 05/08/21 05/09/21 History omeprazole 40 mg PO BID 05/08/21 05/09/21 History trazodone 100 mg PO HS 05/08/21 05/09/21 History cetirizine [Zyrtec] 10 mg PO DAILY 05/09/21 05/09/21 History lactobacillus combination no.8 1 cell PO DAILY 05/09/21 05/09/21 History [Adult Probiotic] Patient hx anesthesia problems: none Family hx anesthesia problems: none Results Review: All pre-operative results and documents have been reviewed as part of the pre-operative evaluation. [facility] Past Medical History Medical History (Updated 05/18/21 @ 10:46 by Brigido Alfonso MD) Diabetes Hyperlipidemia Hypothyroidism GARCIA (obstructive sleep apnea) Overweight (BMI 25.0-29.9) Social History Social History Smoking packs per day: 2 Smoking cigarettes per day: 40.0 Smoking status: Former smoker Tobacco type: cigarettes Alcohol intake: current Drinks per week: 2 Substance use type: does not use Living arrangements: alone Spiritual care concerns: No Anes - Eval Final PreProcedure Day of Procedure 05/18/21 10:45 Patient weight: overweight Heart: regular rate and rhythm Lungs: clear to auscultation and normal air movement Airway: Mallampati scale class II Neurological: alert and oriented Last oral intake: >/= 8 hours ASA classification: III Emergent: no Anesthetic plan: proceed Anesthesia type and monitoring: general GIVS Results Review: All pre-operative results and documents have been reviewed as part of the pre-operative evaluation. Informed Consent: The patient's anesthetic plan and its attendant risks and benefits were discussed with the patient/family/POA. Questions were solicited and answers provided to the satisfaction of the patient/family/POA.
[2021-05-18 12:20] VITALS: BP 149/81; PULSE 73; RESP 20; TEMP 36.5; O2SAT 98
[2021-05-18] MEDS: LACTATED RINGERS 1,000 ML 150 ML IV CONT (12:39)
[2021-05-18 12:41] LABS: Glucose Point of Care 113 mg/dl (65-105)
--- NOTE | 2021-05-18 13:15 | WPDGICN ---
Assessment and Plan Assessment and plan (1) GERD (gastroesophageal reflux disease): Code(s): K21.9 - Gastro-esophageal reflux disease without esophagitis Status: Acute Assessment and Plan: Patient has a long history of GE reflux now with increasing heartburn and difficulty swallowing. This is improved on increasing medication. Plan is for EGD to assess for this change in her symptoms. Further recommendations will be given after endoscopy. (2) Dysphagia: Code(s): R13.10 - Dysphagia, unspecified Status: Acute Assessment and Plan: Patient complains of food sticking in the mid substernal portion of the chest. Plan is for EGD to assess more thoroughly. Further recommendations will be given after endoscopy. GI Consult Note Consult date/time: 05/18/21 13:15 HPI: Mariann Jacques is a 66 year old female presents for EGD. Patient has a history of acid reflux. She has been maintained on omeprazole 40mg p.o. once daily. Over the last 1 month she has noted that food will stick in the mid substernal portion of her chest. She has had increasing epigastric pain she will gag frequently. She was recently seen by primary care service and dose of omeprazole was advanced to 40mg p.o. b.i.d.. She is notice much less pain during this interval of time. She denies any weight loss or bleeding. Family history noncontributory. Patient is referred now for EGD because of ongoing epigastric pain and dysphagia. Review of Systems Review of Systems: All systems reviewed & are unremarkable except as noted in HPI and below [facility] Past Medical History Medical History (Updated 05/18/21 @ 13:17 by Guerrero Vail MD) Diabetes Hyperlipidemia Hypothyroidism GARCIA (obstructive sleep apnea) Overweight (BMI 25.0-29.9) Social History Social History Smoking packs per day: 2 Smoking cigarettes per day: 40.0 Smoking status: Former smoker Tobacco type: cigarettes Alcohol intake: current Drinks per week: 2 Substance use type: does not use Living arrangements: alone Spiritual care concerns: No Meds Home Medications and Allergies Home Medications Medication Instructions Recorded Confirmed Type levothyroxine 75 mcg PO DAILY 05/08/21 05/18/21 History lovastatin 20 mg PO DAILY 05/08/21 05/09/21 History metformin 500 mg PO BID 05/08/21 05/09/21 History omeprazole 40 mg PO BID 05/08/21 05/09/21 History trazodone 100 mg PO HS 05/08/21 05/09/21 History cetirizine [Zyrtec] 10 mg PO DAILY 05/09/21 05/09/21 History lactobacillus combination no.8 1 cell PO DAILY 05/09/21 05/09/21 History [Adult Probiotic] Allergies Allergy/AdvReac Type Severity Reaction Status Date / Time erythromycin base Allergy Unknown VOMITING Verified 05/18/21 12:18 AND DIARRHEA thiopental Allergy Unknown SODIUM Verified 05/18/21 12:18 PENTOTHAL- DENTIST SAID I STOPPED BREATHING Vital Signs Vital Signs - 24 hr 05/18/21 12:20 Temperature 97.7 F Pulse Rate 73 Respiratory Rate 20 Blood Pressure 149/81 H Pulse Oximetry 98 Exam Narrative: Physical exam reveals patient to be alert. Vital signs stable. HEENT exam is unremarkable. Patient is anicteric. Lungs are clear to auscultation and percussion. Heart is without murmur or extra sounds. Abdominal exam bowel sounds present soft nontender with no organomegaly. Digital external rectal exam is normal.
[2021-05-18 13:35] VITALS: BP 95/67; PULSE 95; RESP 20; O2SAT 95
[2021-05-18 13:45] VITALS: BP 155/81; PULSE 76; RESP 20; O2SAT 100
[2021-05-18 13:55] VITALS: BP 152/84; PULSE 74; RESP 20; O2SAT 100
== END 2021-05-18 14:12 | disposition home or self-care (01) ==
PROVIDERS: PCP Internal Medicine; Visit Provider Internal Medicine Gastroenterology
PROC: 0DJ08ZZ Inspection of Upper Intestinal Tract, Via Natural or Artificial Opening Endoscopic (ICD-10-PCS; CPT 43235; principal; 2021-05-18 13:30)
DX: K21.9 Gastro-esophageal reflux disease without esophagitis (principal); K44.9 Diaphragmatic hernia without obstruction or gangrene; R13.10 Dysphagia, unspecified; E11.9 Type 2 diabetes mellitus without complications; E78.5 Hyperlipidemia, unspecified; E03.9 Hypothyroidism, unspecified; G47.33 Obstructive sleep apnea (adult) (pediatric); Z87.891 Personal history of nicotine dependence; Z79.84 Long term (current) use of oral hypoglycemic drugs
CPT/HCPCS: 43235; 82948; J2001; J2704; J7120

== ENCOUNTER 2021-07-05 14:15 | Outpatient (CLI) | payer MEDICARE, OTHER, SELFPAY | END 2021-07-05 14:16 | disposition home or self-care (01) | LOC: ANHAUDASC 14:16 | PROVIDERS: PCP Internal Medicine; Visit Provider Otolaryngology | DX: H93.12 Tinnitus, left ear (principal); H90.3 Sensorineural hearing loss, bilateral | CPT/HCPCS: 92557; 92567 ==

== ENCOUNTER 2021-07-27 10:40 | Outpatient (CLI) | payer MEDICARE, SELFPAY ==
[2021-07-27 11:31] LABS: Alanine Aminotransferase 13 U/L (14-59); Albumin Level 3.4 g/dL (3.4-5.0); Alkaline Phosphatase 97 U/L (46-116); Anion Gap 8 mmol/L (8-16); Aspartate Amino Transferase 15 U/L (15-37); Bilirubin,Total 0.5 mg/dL (0.00-1.00); Blood Urea Nitrogen 16 mg/dL (7-18); Calcium 8.5 mg/dL (8.5-10.1); Carbon Dioxide 23 mmol/L (21-32); Chloride 109 mmol/L (98-108); Estimated Glomerular Filt Rate > 60; Free T3 2.37 pg/mL (2.18-3.98); Free T4 Free Thyroxine 1.29 ng/dL (0.76-1.46); Glucose 115 mg/dL (70-99); Osmolality Calculated 292 mOsm/kg (285-295); Sodium 140 mmol/L (136-145); Thyroid Stimulating Hormone 1.54 uIU/mL (0.36-3.74); Total Protein 6.7 g/dL (6.4-8.2)
== END 2021-07-27 10:41 | disposition home or self-care (01) ==
LOC: CHSLAB 10:42
PROVIDERS: PCP Internal Medicine; Visit Provider Internal Medicine
DX: R73.01 Impaired fasting glucose (principal); E03.4 Atrophy of thyroid (acquired)
CPT/HCPCS: 36415; 80053; 83036; 84439; 84443; 84481

== ENCOUNTER 2021-10-26 10:01 | Outpatient (CLI) | payer MEDICARE, SELFPAY ==
[2021-10-26 10:16] LABS: Basophils Absolute Auto 0.05 K/mm3 (0.00-0.10); Basophils Percent Auto 0.9 % (0.0-1.0); Eosinophils Percent Auto 3.8 % (1.0-6.0); Hematocrit 41.6 % (35.0-42.0); Hemoglobin 13.4 g/dL (11.7-13.8); Immature Granulocyte Absolute 0.01 K/mm3 (0.00-0.00); Immature Granulocyte Percent A 0.2 % (0.0-0.0); Lymphocytes Absolute Auto 1.99 K/mm3 (1.10-4.50); Lymphocytes Percent Auto 37.4 % (18.0-42.0); Mean Corpuscular HGB Conc 32.2 g/dL (32.0-36.0); Mean Corpuscular Hemoglobin 29.6 pg (27.0-31.0); Mean Corpuscular Volume 91.8 fL (78.0-102.0); Mean Platelet Volume 9.5 fl (9.2-11.8); Monocytes Percent Auto 5.6 % (2.0-11.0); Neutrophils Absolute Auto 2.8 K/mm3 (1.7-7.2); Neutrophils Percent Auto 52.1 % (50.0-70.0); Platelet Count Result 308 K/mm3 (150-420); Red Blood Count 4.53 M/mm3 (4.20-5.40); Red Cell Distribution Width 13.1 % (11.6-14.4); White Blood Count 5.3 K/mm3 (4.8-10.8)
[2021-10-26 10:19] LABS: Add Urine Microscopic? YES; Appearance Urine Clear (Clear); Bilirubin Urine Negative (Negative); Blood Urine Negative (Negative); Color Urine Light Yellow (Yellow); Glucose Urine UA Negative (Negative); Ketones Urine Negative (Negative); Leukocyte Esterase Ur 2+ LEU/UL (Negative); Nitrate Urine Negative (Negative); Protein Urine Negative (Negative); Urobilinogen Urine 0.2 mg/dL (0.2-1.0)
[2021-10-26 10:26] LABS: Hemoglobin A1C 5.8 % (<5.7)
[2021-10-26 10:34] LABS: Bacteria Urine Trace /hpf; RBC Urine None seen /hpf (0-2); Squamous Epithelial Cell Urine Moderate /hpf (Few)
[2021-10-26 10:35] LABS: Mucus Urine Few /lpf
[2021-10-26 10:56] LABS: Alanine Aminotransferase 14 U/L (14-59); Albumin Level 3.8 g/dL (3.4-5.0); Alkaline Phosphatase 73 U/L (46-116); Anion Gap 7 mmol/L (8-16); Aspartate Amino Transferase 13 U/L (15-37); Bilirubin,Total 0.6 mg/dL (0.00-1.00); Blood Urea Nitrogen 12 mg/dL (7-18); Calcium 9.2 mg/dL (8.5-10.1); Carbon Dioxide 27 mmol/L (21-32); Chloride 106 mmol/L (98-108); Cholesterol 146 mg/dL (0-200); Creatine Kinase 41 U/L (26-192); Estimated Glomerular Filt Rate > 60; Free T3 2.15 pg/mL (2.18-3.98); Free T4 Free Thyroxine 1.06 ng/dL (0.76-1.46); Glucose 113 mg/dL (70-99); HDL Direct 52 mg/dL (40-60); LDL Cholesterol Calculated 77 mg/dL (<130); Osmolality Calculated 290 mOsm/kg (285-295); Potassium 4.2 mmol/L (3.5-5.1); Sodium 140 mmol/L (136-145); Thyroid Stimulating Hormone 0.89 uIU/mL (0.36-3.74); Total Protein 6.8 g/dL (6.4-8.2); Triglycerides 83 mg/dL (0-150)
[2021-10-29 07:41] LABS: MALB Creatinine Ratio 14.1 mg/g (0-30)
[2021-11-01 20:51] LABS: Vitamin D 25 Hydroxy 66 ng/mL (30-100)
== END 2021-10-26 10:02 | disposition home or self-care (01) ==
LOC: CHSLAB 10:03
PROVIDERS: PCP Internal Medicine; Visit Provider Internal Medicine
DX: M81.0 Age-related osteoporosis without current pathological fracture (principal); E78.5 Hyperlipidemia, unspecified; E11.9 Type 2 diabetes mellitus without complications; E03.9 Hypothyroidism, unspecified; N39.0 Urinary tract infection, site not specified
CPT/HCPCS: 36415; 80053; 80061; 81001; 82043; 82306; 82550; 83036; 84439; 84443; 84481; 85025; 87077; 87086; 87088

== ENCOUNTER 2021-10-29 11:46 | Outpatient (CLI) | payer MEDICARE, OTHER, SELFPAY ==
--- NOTE | ~2021-10-29 | MM_ITS ---
EXAMINATION: MM screening [facility] BI w nakia HISTORY: Screening mammogram TECHNIQUE: Craniocaudal and mediolateral oblique 3-D tomosynthesis images were obtained and synthetic 2-D images were generated. CAD analysis was submitted and interpreted. COMPARISON: 10/31/2020, 09/07/2019, 02/27/2018 bilateral screening mammogram examinations BREAST PARENCHYMAL COMPOSITION: There are scattered areas of fibroglandular density. FINDINGS: There is no evidence of suspicious mass, calcification, or architectural distortion to sugg est malignancy in either breast. There has been no suspicious interval change. IMPRESSION: 1. No mammographic evidence of malignancy. 2. Recommend routine screening mammography in one year. BI-RADS Category 1: Negative Reviewed, dictated and finalized at location A.
== END 2021-10-29 11:47 | disposition home or self-care (01) ==
LOC: CHSIMG 11:48
PROVIDERS: PCP Internal Medicine; Visit Provider Internal Medicine
DX: Z12.31 Encounter for screening mammogram for malignant neoplasm of breast (principal)
CPT/HCPCS: 77063; 77067

== ENCOUNTER 2022-05-03 10:52 | Outpatient (CLI) | payer MEDICARE, OTHER, SELFPAY ==
[2022-05-03 11:18] LABS: Appearance Urine Clear (Clear); Basophils Absolute Auto 0.06 K/mm3 (0.00-0.10); Basophils Percent Auto 1.2 % (0.0-1.0); Bilirubin Urine Negative (Negative); Blood Urine Negative (Negative); Color Urine Light Yellow (Yellow); Eosinophils Absolute Auto 0.26 K/mm3 (0.02-0.50); Eosinophils Percent Auto 5.3 % (1.0-6.0); Glucose Urine UA Negative (Negative); Hematocrit 41.6 % (35.0-42.0); Hemoglobin 13.6 g/dL (11.7-13.8); Ketones Urine Negative (Negative); Leukocyte Esterase Ur 3+ LEU/UL (Negative); Lymphocytes Absolute Auto 2.15 K/mm3 (1.10-4.50); Lymphocytes Percent Auto 44.1 % (18.0-42.0); Mean Corpuscular HGB Conc 32.7 g/dL (32.0-36.0); Mean Corpuscular Hemoglobin 28.8 pg (27.0-31.0); Mean Corpuscular Volume 87.9 fL (78.0-102.0); Mean Platelet Volume 9.2 fl (9.2-11.8); Monocytes Absolute Auto 0.28 K/mm3 (0.10-0.90); Monocytes Percent Auto 5.7 % (2.0-11.0); Neutrophils Absolute Auto 2.1 K/mm3 (1.7-7.2); Neutrophils Percent Auto 43.7 % (50.0-70.0); Nitrate Urine Negative (Negative); Platelet Count Result 342 K/mm3 (150-420); Protein Urine Negative (Negative); Red Blood Count 4.73 M/mm3 (4.20-5.40); Red Cell Distribution Width 12.9 % (11.6-14.4); Specific Grav Ur 1.015 (1.010-1.020); Urobilinogen Urine 0.2 mg/dL (0.2-1.0); White Blood Count 4.9 K/mm3 (4.8-10.8)
[2022-05-03 11:24] LABS: Add Urine Microscopic? YES; Bacteria Urine 3+ /hpf; RBC Urine 0-2 /hpf (0-2); Squamous Epithelial Cell Urine Few /hpf (Few); WBC Urine 21-30 /hpf (0-3)
[2022-05-03 11:37] LABS: Creatinine Urine 179.27 mg/dL (40-278); MALB Creatinine Ratio 17.7 mg/g (0-30); Microalbumin Urine Random 31.8 mg/L
[2022-05-03 11:43] LABS: Hemoglobin A1C 6.4 % (<5.7)
[2022-05-03 13:13] LABS: Alanine Aminotransferase 22 U/L (14-59); Albumin Level 3.9 g/dL (3.4-5.0); Alkaline Phosphatase 153 U/L (46-116); Anion Gap 7 mmol/L (8-16); Aspartate Amino Transferase 16 U/L (15-37); Bilirubin,Total 0.6 mg/dL (0.00-1.00); Blood Urea Nitrogen 10 mg/dL (7-18); Calcium 8.9 mg/dL (8.5-10.1); Carbon Dioxide 30 mmol/L (21-32); Chloride 105 mmol/L (98-108); Cholesterol 228 mg/dL (0-200); Creatine Kinase 46 U/L (26-192); Estimated Glomerular Filt Rate 56; Free T3 2.22 pg/mL (2.18-3.98); Glucose 127 mg/dL (70-99); HDL Direct 46 mg/dL (40-60); LDL Cholesterol Calculated 150 mg/dL (<130); Osmolality Calculated 295 mOsm/kg (285-295); Potassium 4.1 mmol/L (3.5-5.1); Sodium 142 mmol/L (136-145); Thyroid Stimulating Hormone 3.96 uIU/mL (0.36-3.74); Triglycerides 159 mg/dL (0-150)
[2022-05-06 18:50] LABS: Vitamin D 25 Hydroxy 43 ng/mL (30-100)
== END 2022-05-03 10:53 | disposition home or self-care (01) ==
LOC: CHSLAB 10:54
PROVIDERS: PCP Internal Medicine; Visit Provider Internal Medicine
DX: M81.0 Age-related osteoporosis without current pathological fracture (principal); E11.9 Type 2 diabetes mellitus without complications; E03.4 Atrophy of thyroid (acquired); E78.2 Mixed hyperlipidemia; N39.0 Urinary tract infection, site not specified; R82.90 Unspecified abnormal findings in urine
CPT/HCPCS: 36415; 80053; 80061; 81001; 82043; 82306; 82550; 83036; 84439; 84443; 84481; 85025; 87077; 87086; 87088

== ENCOUNTER 2022-05-20 15:33 | Outpatient (CLI) | payer MEDICARE, OTHER, SELFPAY ==
[2022-05-20 15:54] LABS: Basophils Absolute Auto 0.06 K/mm3 (0.00-0.10); Basophils Percent Auto 0.9 % (0.0-1.0); Eosinophils Absolute Auto 0.24 K/mm3 (0.02-0.50); Eosinophils Percent Auto 3.7 % (1.0-6.0); Hematocrit 38.6 % (35.0-42.0); Hemoglobin 12.8 g/dL (11.7-13.8); Immature Granulocyte Absolute 0.01 K/mm3 (0.00-0.00); Immature Granulocyte Percent A 0.2 % (0.0-0.0); Lymphocytes Absolute Auto 2.45 K/mm3 (1.10-4.50); Lymphocytes Percent Auto 37.5 % (18.0-42.0); Mean Corpuscular HGB Conc 33.2 g/dL (32.0-36.0); Mean Corpuscular Volume 87.3 fL (78.0-102.0); Mean Platelet Volume 9.7 fl (9.2-11.8); Monocytes Absolute Auto 0.38 K/mm3 (0.10-0.90); Monocytes Percent Auto 5.8 % (2.0-11.0); Neutrophils Absolute Auto 3.4 K/mm3 (1.7-7.2); Neutrophils Percent Auto 51.9 % (50.0-70.0); Platelet Count Result 313 K/mm3 (150-420); Red Blood Count 4.42 M/mm3 (4.20-5.40); White Blood Count 6.5 K/mm3 (4.8-10.8)
[2022-05-20 16:26] LABS: Uric Acid 5.3 mg/dL (2.6-6.0)
[2022-05-20 16:28] LABS: CRP < 0.5 mg/dL (0.0-0.9)
[2022-05-20 16:44] LABS: Rheumatoid Factor Screen Negative (Negative)
[2022-05-20 17:00] LABS: Erythrocyte Sedimentation Rate 10 mm/hr (0-20)
[2022-05-23 21:41] LABS: Anti Cyclic Citrullinated Pept <16 Units (<20)
[2022-05-26 14:16] LABS: Anti Nuclear Antibody Pattern Nuclear, Speckled
== END 2022-05-20 15:34 | disposition home or self-care (01) ==
LOC: CHSLAB 15:35
PROVIDERS: PCP Internal Medicine; Visit Provider Internal Medicine
DX: M25.541 Pain in joints of right hand (principal)
CPT/HCPCS: 36415; 84550; 85025; 85652; 86038; 86039; 86140; 86200; 86430

== ENCOUNTER 2022-05-31 13:35 | Outpatient (CLI) | payer MEDICARE, SELFPAY ==
[2022-06-04 03:46] LABS: Thyroid Peroxidase Antibodies 180 IU/mL (<9)
[2022-06-14 19:19] LABS: Thyroxin Binding Globulin 15.9 mcg/mL (13.5-30.9)
== END 2022-05-31 13:36 | disposition home or self-care (01) ==
LOC: CHSLAB 13:37
PROVIDERS: PCP Internal Medicine; Visit Provider Internal Medicine
DX: R76.0 Raised antibody titer (principal)
CPT/HCPCS: 36415; 84442; 86376

== ENCOUNTER 2022-08-13 09:51 | Outpatient (CLI) | payer MEDICARE, SELFPAY ==
[2022-08-13 10:18] LABS: Hemoglobin A1C 6.2 % (<5.7)
[2022-08-13 11:18] LABS: Alanine Aminotransferase 17 U/L (14-59); Alkaline Phosphatase 156 U/L (46-116); Anion Gap 10 mmol/L (8-16); Aspartate Amino Transferase 14 U/L (15-37); Bilirubin,Total 0.6 mg/dL (0.00-1.00); Blood Urea Nitrogen 16 mg/dL (7-18); Calcium 9.4 mg/dL (8.5-10.1); Carbon Dioxide 27 mmol/L (21-32); Chloride 106 mmol/L (98-108); Cholesterol 165 mg/dL (0-200); Creatine Kinase 101 U/L (26-192); Estimated Glomerular Filt Rate > 60; Glucose 132 mg/dL (70-99); HDL Direct 46 mg/dL (40-60); LDL Cholesterol Calculated 93 mg/dL (<130); Osmolality Calculated 299 mOsm/kg (285-295); Potassium 4.7 mmol/L (3.5-5.1); Sodium 143 mmol/L (136-145); Total Protein 6.8 g/dL (6.4-8.2); Triglycerides 132 mg/dL (0-150)
== END 2022-08-13 09:52 | disposition home or self-care (01) ==
LOC: CHSLAB 09:54
PROVIDERS: PCP Internal Medicine; Visit Provider Internal Medicine
DX: E11.9 Type 2 diabetes mellitus without complications (principal); E78.2 Mixed hyperlipidemia
CPT/HCPCS: 36415; 80053; 80061; 82550; 83036

== ENCOUNTER 2022-11-27 09:50 | Outpatient (CLI) | payer MEDICARE, SELFPAY ==
[2022-11-27 10:04] LABS: Basophils Absolute Auto 0.08 K/mm3 (0.00-0.10); Basophils Percent Auto 1.3 % (0.0-1.0); Eosinophils Absolute Auto 0.24 K/mm3 (0.02-0.50); Eosinophils Percent Auto 3.8 % (1.0-6.0); Hemoglobin 13.3 g/dL (11.7-13.8); Immature Granulocyte Absolute 0.02 K/mm3 (0.00-0.00); Immature Granulocyte Percent A 0.3 % (0.0-0.0); Lymphocytes Absolute Auto 1.97 K/mm3 (1.10-4.50); Lymphocytes Percent Auto 31.4 % (18.0-42.0); Mean Corpuscular HGB Conc 33.3 g/dL (32.0-36.0); Mean Corpuscular Hemoglobin 29.4 pg (27.0-31.0); Mean Corpuscular Volume 88.3 fL (78.0-102.0); Mean Platelet Volume 9.5 fl (9.2-11.8); Monocytes Absolute Auto 0.38 K/mm3 (0.10-0.90); Monocytes Percent Auto 6.1 % (2.0-11.0); Neutrophils Absolute Auto 3.6 K/mm3 (1.7-7.2); Neutrophils Percent Auto 57.1 % (50.0-70.0); Platelet Count Result 315 K/mm3 (150-420); Red Blood Count 4.53 M/mm3 (4.20-5.40); Red Cell Distribution Width 13.2 % (11.6-14.4); White Blood Count 6.3 K/mm3 (4.8-10.8)
[2022-11-27 10:13] LABS: Appearance Urine Clear (Clear); Bilirubin Urine Negative (Negative); Blood Urine Trace-Intact (Negative); Color Urine Light Yellow (Yellow); Glucose Urine UA Negative (Negative); Ketones Urine Negative (Negative); Leukocyte Esterase Ur Trace (Negative); Nitrate Urine Negative (Negative); Protein Urine Negative (Negative); Urobilinogen Urine 0.2 mg/dL (0.2-1.0); pH Urine 5.5 (5.0-8.0)
[2022-11-27 10:19] LABS: Creatinine Urine 66.14 mg/dL (40-278); MALB Creatinine Ratio 19.6 mg/g (0-30); Microalbumin Urine Random < 13.0 mg/L
[2022-11-27 10:21] LABS: Add Urine Microscopic? YES; Bacteria Urine Trace /hpf; Hemoglobin A1C 6.4 % (<5.7); RBC Urine 0-2 /hpf (0-2); Squamous Epithelial Cell Urine Few /hpf (Few); WBC Urine 0-3 /hpf (0-3)
[2022-11-27 11:12] LABS: Alanine Aminotransferase 14 U/L (14-59); Albumin Level 3.6 g/dL (3.4-5.0); Alkaline Phosphatase 161 U/L (46-116); Anion Gap 10 mmol/L (8-16); Aspartate Amino Transferase 11 U/L (15-37); Bilirubin,Total 0.5 mg/dL (0.00-1.00); Blood Urea Nitrogen 17 mg/dL (7-18); Calcium 9.1 mg/dL (8.5-10.1); Carbon Dioxide 25 mmol/L (21-32); Chloride 105 mmol/L (98-108); Cholesterol 242 mg/dL (0-200); Creatine Kinase 40 U/L (26-192); Estimated Glomerular Filt Rate > 60; Free T4 Free Thyroxine 0.92 ng/dL (0.76-1.46); Glucose 135 mg/dL (70-99); HDL Direct 43 mg/dL (40-60); LDL Cholesterol Calculated 168 mg/dL (<130); Osmolality Calculated 293 mOsm/kg (285-295); Potassium 3.9 mmol/L (3.5-5.1); Sodium 140 mmol/L (136-145); Thyroid Stimulating Hormone 5.61 uIU/mL (0.36-3.74); Total Protein 6.3 g/dL (6.4-8.2); Triglycerides 157 mg/dL (0-150)
== END 2022-11-27 09:51 | disposition home or self-care (01) ==
LOC: CHSLAB 09:52
PROVIDERS: PCP Internal Medicine; Visit Provider Internal Medicine
DX: R31.21 Asymptomatic microscopic hematuria (principal); R53.82 Chronic fatigue, unspecified; E78.2 Mixed hyperlipidemia; E11.9 Type 2 diabetes mellitus without complications; E03.4 Atrophy of thyroid (acquired)
CPT/HCPCS: 36415; 80053; 80061; 81001; 82043; 82550; 83036; 84439; 84443; 84481; 85025

== ENCOUNTER 2022-12-03 10:36 | Outpatient (CLI) | payer MEDICARE, OTHER, SELFPAY ==
--- NOTE | ~2022-12-03 | DEXA_ITS ---
Bone Density Report Name: KRUPA NICHOLAS Age: 67 Sex: Female Ethnicity: White Date of : 1955 Indication: postmenopausal; screening for osteoporosis; height loss; prior fracture; hysterectomy; Referring Provider: Mary Nguyen Study: Bone densitometry was performed. Exam Date: December 03, 2022 Accession number: [id number] Bone Density: Region BMD T-score Z-score Classification AP Spine(L1, L2, L3) 0.767 -2.3 -0.3 Osteopenia Femoral Neck (Left) 0.508 -3.1 -1.4 Osteoporosis Total Hip (Left) 0.699 -2.0 -0.6 Osteopenia Femoral Neck (Right) 0.513 -3.0 -1.3 Osteoporosis Total Hip (Right) 0.685 -2.1 -0.7 Osteopenia Femoral Neck Mean 0.511 -3.0 -1.3 Osteoporosis Total Hip Mean 0.692 -2.1 -0.6 Osteopenia World Health Organization criteria for BMD impression classify patients as: Normal (T-score at or above -1.0), Osteopenia (T-score between -1.0 and -2.5), or Osteoporosis (T-score at or below -2.5). 10-year Fracture Risk: FRAX not reported because: Some T-score for Spine Total or Hip Total or Femoral Neck at or below -2.5 Prior hip or vertebral fracture Treated for osteoporosis Clinical Information Provided by Patient: Have had a previous hip or vertebral fracture Has had a low trauma fracture Is being treated for osteoporosis Has used the following medications: Fosamax (i.e. alendronate), Vitamin D Has the following medical conditions: Hysterectomy Patient maximum height was 61 Menopause Age: 39 No regular weight bearing exercise Drinks caffeinated beverages Onset of menses at age 14 Number of children 3 Missed period for more than 6 months in a row Impression: The patient has established osteoporosis, based on the Left Femoral Neck T-score and the existence of a prior fracture. The patient has risk factors, including: previous fracture. Discussion: It is important to ask patients whether they are taking their medications and to encourage continued and appropriate compliance with their osteoporosis therapies to reduce fracture risk. It is also important to review their risk factors and encourage appropriate calcium and vitamin D intakes, exercise, fall prevention and other lifestyle measures. Follow-Up: Consider a repeat BMD and Vertebral Fracture Assessment (VFA) exam in 2 years or sooner if medically necessary, to reassess this patient's status. Reported by: Dr. Vivek Cano on 12/03/2022 10:59:00 AM. Reviewed, dictated and finalized at location A.
== END 2022-12-03 10:37 | disposition home or self-care (01) ==
LOC: CHSIMG 10:37
PROVIDERS: PCP Internal Medicine; Visit Provider Internal Medicine
DX: Z78.0 Asymptomatic menopausal state (principal); M81.0 Age-related osteoporosis without current pathological fracture; M85.89 Other specified disorders of bone density and structure, multiple sites
CPT/HCPCS: 77080

== ENCOUNTER 2023-04-08 08:10 | Outpatient (CLI) | payer MEDICARE, SELFPAY ==
[2023-04-08 10:50] LABS: Hemoglobin A1C 5.9 % (<5.7)
[2023-04-08 10:54] LABS: Anion Gap 9 mmol/L (8-16); Blood Urea Nitrogen 18 mg/dL (7-18); Calcium 9.1 mg/dL (8.5-10.1); Carbon Dioxide 27 mmol/L (21-32); Chloride 107 mmol/L (98-108); Estimated Glomerular Filt Rate > 60; Free T3 1.82 pg/mL (2.18-3.98); Free T4 Free Thyroxine 1.21 ng/dL (0.76-1.46); Glucose 120 mg/dL (70-99); Osmolality Calculated 298 mOsm/kg (285-295); Potassium 4.1 mmol/L (3.5-5.1); Sodium 143 mmol/L (136-145); Thyroid Stimulating Hormone 2.13 uIU/mL (0.36-3.74)
== END 2023-04-08 08:11 | disposition home or self-care (01) ==
LOC: CHSLAB 08:12
PROVIDERS: PCP Internal Medicine; Visit Provider Internal Medicine
DX: E11.9 Type 2 diabetes mellitus without complications (principal); E03.4 Atrophy of thyroid (acquired)
CPT/HCPCS: 36415; 80048; 83036; 84439; 84443; 84481

== ENCOUNTER 2023-05-21 13:17 | Outpatient (CLI) | payer MEDICARE, OTHER, SELFPAY ==
--- NOTE | ~2023-05-21 | MM_ITS ---
EXAMINATION: MM screening [facility] BI w nakia HISTORY: Screening TECHNIQUE: Craniocaudal and mediolateral oblique 3-D tomosynthesis images were obtained and synthetic 2-D images were generated. CAD analysis was submitted and interpreted. COMPARISON: 10/29/2021 BREAST PARENCHYMAL COMPOSITION: There are scattered areas of fibroglandular density. FINDINGS: There is no evidence of suspicious mass, calcification, or architectural distortion to sugg est malignancy in either breast. There has been no suspicious interval change. IMPRESSION: 1. No mammographic evidence of malignancy. 2. Recommend routine screening mammography in one year. BI-RADS Category 1: Negative Reviewed, dictated and finalized at location A.
[2023-05-21 13:48] VITALS: BP 118/67; PULSE 68; RESP 14; O2SAT 98; BMI 43.4
[2023-05-21] MEDS: DENOSUMAB 60 MG/ML SYRINGE SUB-Q (13:51)
--- NOTE | 2023-05-21 14:05 | PC.NURSE ---
Patient here for Prolia injection. Education given. No concerns voiced. Injection administered. SEE MAR. Tolerated well. Will return 11/20/23 at 1300 for next Prolia injection. Safe exit of hospital per self/ambulatory.
== END 2023-05-21 13:54 | disposition home or self-care (01) ==
LOC: CHSTREATRM 13:18
PROVIDERS: PCP Internal Medicine; Visit Provider Internal Medicine
DX: M81.0 Age-related osteoporosis without current pathological fracture (principal); Z12.31 Encounter for screening mammogram for malignant neoplasm of breast
CPT/HCPCS: 77063; 77067; 96372; J0897

== ENCOUNTER 2023-07-17 09:52 | Outpatient (CLI) | payer MEDICARE, OTHER, SELFPAY ==
[2023-07-17 10:16] LABS: Basophils Absolute Auto 0.05 K/mm3 (0.00-0.10); Basophils Percent Auto 0.8 % (0.0-1.0); Eosinophils Absolute Auto 0.27 K/mm3 (0.02-0.50); Eosinophils Percent Auto 4.5 % (1.0-6.0); Hematocrit 39.8 % (35.0-42.0); Hemoglobin 12.7 g/dL (11.7-13.8); Immature Granulocyte Absolute 0.01 K/mm3 (0.00-0.00); Immature Granulocyte Percent A 0.2 % (0.0-0.0); Lymphocytes Absolute Auto 2.25 K/mm3 (1.10-4.50); Lymphocytes Percent Auto 37.4 % (18.0-42.0); Mean Corpuscular HGB Conc 31.9 g/dL (32-36); Mean Corpuscular Hemoglobin 28.9 pg (27.0-31.0); Mean Corpuscular Volume 90.5 fL (78.0-102.0); Mean Platelet Volume 9.3 fl (9.2-11.8); Monocytes Absolute Auto 0.34 K/mm3 (0.10-0.90); Monocytes Percent Auto 5.7 % (2.0-11.0); Neutrophils Absolute Auto 3.09 K/mm3 (1.70-7.20); Neutrophils Percent Auto 51.4 % (50.0-70.0); Platelet Count Result 332 K/mm3 (150-420); Red Cell Distribution Width 13.2 % (11.6-14.4)
[2023-07-17 10:28] LABS: Appearance Urine Clear (Clear); Bilirubin Urine Negative (Negative); Blood Urine Negative (Negative); Color Urine Yellow (Yellow); Glucose Urine UA Negative (Negative); Ketones Urine Negative (Negative); Leukocyte Esterase Ur Trace (Negative); Nitrate Urine Negative (Negative); Protein Urine Negative (Negative)
[2023-07-17 10:34] LABS: Creatinine Urine 83.85 mg/dL (40-278); MALB Creatinine Ratio 15.5 mg/g (0-30); Microalbumin Urine Random < 13.0 mg/L
[2023-07-17 10:35] LABS: Hemoglobin A1C 5.8 % (<5.7)
[2023-07-17 10:36] LABS: Add Urine Microscopic? YES; Bacteria Urine Trace /hpf; RBC Urine None seen /hpf (0-2); Squamous Epithelial Cell Urine Moderate /hpf (Few); WBC Urine 0-3 /hpf (0-3)
[2023-07-17 10:37] LABS: Mucus Urine Few /lpf
[2023-07-17 11:06] LABS: Alanine Aminotransferase 18 U/L (14-59); Albumin Level 3.8 g/dL (3.4-5.0); Alkaline Phosphatase 95 U/L (46-116); Anion Gap 6 mmol/L (4-12); Aspartate Amino Transferase 19 U/L (15-37); Bilirubin,Total 0.4 mg/dL (0.00-1.00); Blood Urea Nitrogen 12 mg/dL (7-18); Calcium 8.1 mg/dL (8.5-10.1); Carbon Dioxide 28 mmol/L (21-32); Chloride 107 mmol/L (98-108); Cholesterol 145 mg/dL (0-200); Creatine Kinase 58 U/L (26-192); Estimated Glomerular Filt Rate > 60; Free T3 2.04 pg/mL (2.18-3.98); Free T4 Free Thyroxine 1.08 ng/dL (0.76-1.46); Glucose 111 mg/dL (70-99); HDL Direct 47 mg/dL (40-60); LDL Cholesterol Calculated 74 mg/dL (<130); Osmolality Calculated 292 mOsm/kg (285-295); Potassium 4.6 mmol/L (3.5-5.1); Sodium 141 mmol/L (136-145); Thyroid Stimulating Hormone 2.16 uIU/mL (0.36-3.74); Triglycerides 122 mg/dL (0-150)
== END 2023-07-17 09:53 | disposition home or self-care (01) ==
LOC: CHSLAB 09:55
PROVIDERS: PCP Internal Medicine; Visit Provider Internal Medicine
DX: E03.4 Atrophy of thyroid (acquired) (principal); E78.2 Mixed hyperlipidemia; I10 Essential (primary) hypertension; E11.9 Type 2 diabetes mellitus without complications; R53.82 Chronic fatigue, unspecified
CPT/HCPCS: 36415; 80053; 80061; 81001; 82043; 82550; 83036; 84439; 84443; 84481; 85025

== ENCOUNTER 2023-07-30 16:23 | Outpatient (CLI) | payer MEDICARE, OTHER, SELFPAY ==
--- NOTE | ~2023-07-30 | XR_ITS ---
Lumbosacral Spine: AP and lateral views Clinical History: Pain COMPARISON: 03/18/2018 Findings: The normal lordotic curve is maintained. Status post interval posterior and interbody fusio n from L4 to L5. There is moderate to advanced facet arthropathy throughout the lumbar spine. Remaini ng disc spaces are relatively well-preserved. The sacroiliac joints are normally outlined. Impression: Status post interval posterior and interbody fusion from L4 to L5. Moderate to advanced facet arthropathy throughout the lumbar spine. Reviewed, dictated and finalized at location M. Impression: Status post interval posterior and interbody fusion from L4 to L5. Moderate to advanced facet arthropathy throughout the lumbar spine.
[2023-07-30 16:38] LABS: Hematocrit 36.9 % (35.0-42.0); Hemoglobin 12.2 g/dL (11.7-13.8); Mean Corpuscular HGB Conc 33.1 g/dL (32-36); Mean Corpuscular Hemoglobin 29.2 pg (27.0-31.0); Mean Corpuscular Volume 88.3 fL (78.0-102.0); Mean Platelet Volume 9.2 fl (9.2-11.8); Platelet Count Result 317 K/mm3 (150-420); Red Blood Count 4.18 M/mm3 (4.20-5.40); Red Cell Distribution Width 13.3 % (11.6-14.4)
[2023-07-30 17:03] LABS: Alanine Aminotransferase 19 U/L (14-59); Albumin Level 3.6 g/dL (3.4-5.0); Alkaline Phosphatase 82 U/L (46-116); Amylase 39 U/L (25-115); Anion Gap 12 mmol/L (4-12); Aspartate Amino Transferase 18 U/L (15-37); Bilirubin,Total 0.3 mg/dL (0.00-1.00); Blood Urea Nitrogen 17 mg/dL (7-18); Calcium 8.5 mg/dL (8.5-10.1); Carbon Dioxide 24 mmol/L (21-32); Chloride 106 mmol/L (98-108); Estimated Glomerular Filt Rate > 60; Glucose 93 mg/dL (70-99); Lipase 27 U/L (16-77); Osmolality Calculated 295 mOsm/kg (285-295); Potassium 3.7 mmol/L (3.5-5.1); Sodium 142 mmol/L (136-145); Total Protein 6.1 g/dL (6.4-8.2)
== END 2023-07-30 16:24 | disposition home or self-care (01) ==
LOC: CHSLAB 16:27
PROVIDERS: PCP Internal Medicine; Visit Provider Internal Medicine
DX: R10.9 Unspecified abdominal pain (principal); R11.0 Nausea; R19.7 Diarrhea, unspecified; Z98.1 Arthrodesis status; M12.88 Other specific arthropathies, not elsewhere classified, other specified site
CPT/HCPCS: 36415; 72100; 80053; 82150; 83690; 85027

== ENCOUNTER 2023-08-04 07:26 | Outpatient (CLI) | payer MEDICARE, OTHER, SELFPAY ==
--- NOTE | ~2023-08-04 | CT_ITS ---
EXAMINATION: CT abdomen pelvis w con DATE: 08/04/2023 08:12 INDICATION: Abdominal tightness and pressure. TECHNIQUE: Computed tomography (CT) of the abdomen and pelvis was performed with 100 mL Omnipaque 350 intravenous contrast. Automated exposure control and iterative reconstruction technique were employe d. The dose-length product was 381.27 mGy-cm. COMPARISON: CT abdomen and pelvis 01/29/2016 FINDINGS: The visualized portions of the lung bases demonstrate mild atelectasis. No pleural effusion . The heart size is normal. No pericardial effusion. There is a moderate-sized sliding hiatal hernia. The liver is normal. There changes of cholecystectomy. The spleen, pancreas, and adrenal glands are normal. There is cortical thinning of the kidneys. There are cysts in the kidneys measuring up to 14 mm on the left. There is diverticulosis of the colon without evidence of diverticulitis. The rectum i s mildly distended. There is a large volume of stool in the colon. There are umbilical and supraumbil ical ventral hernias containing fat. There are no pathologically enlarged lymph nodes. There is no fr ee intraperitoneal fluid. There are changes of anterior and posterior fusion procedures at L4-L5. The re is mild thoracic and lumbar spondylosis. IMPRESSION: 1. Umbilical and supraumbilical ventral hernias containing fat. 2. Moderate-sized sliding hiatal hernia. Reviewed, dictated and finalized at location E.
== END 2023-08-04 07:27 | disposition home or self-care (01) ==
LOC: CHSIMG 07:28
PROVIDERS: PCP Internal Medicine; Visit Provider Internal Medicine
DX: M54.50 Low back pain, unspecified (principal); R10.32 Left lower quadrant pain; K42.9 Umbilical hernia without obstruction or gangrene; K43.9 Ventral hernia without obstruction or gangrene; K44.9 Diaphragmatic hernia without obstruction or gangrene
CPT/HCPCS: 74177; Q9967

== ENCOUNTER 2023-08-07 08:24 | Outpatient (CLI) | payer MEDICARE, OTHER, SELFPAY ==
--- NOTE | ~2023-08-07 | MR_ITS ---
EXAMINATION: MR lumbar spine wo con DATE: 08/07/2023 09:01 INDICATION: Low back pain. TECHNIQUE: Magnetic resonance imaging (MRI) of the lumbar spine was performed without intravenous con trast. COMPARISON: Lumbar spine radiographs 07/30/2023 FINDINGS: There is 3 mm anterolisthesis of L4 on L5. There are changes of anterior and posterior fusi on procedures at L4-L5 with interbody devices and pedicle screws. Vertebral body heights are normal. Intervertebral disc heights are normal. The distal spinal cord signal intensity is normal. The conus medullaris is at L1. The following disc levels are specifically discussed: L1-L2: The disc does not extend beyond the endplate margin. There is no facet joint osteoarthritis. T here is no neural foraminal stenosis. There is no central canal stenosis. L2-L3: The disc is bulging. There is moderate right and severe left facet joint osteoarthritis. There is mild bilateral neural foraminal stenosis. There is no central canal stenosis. L3-L4: The disc is bulging. There is severe bilateral facet joint osteoarthritis. There is mild bilat eral neural foraminal stenosis. There is no central canal stenosis. L4-L5: The disc does not extend beyond the endplate margin. There is severe bilateral facet joint ost eoarthritis. There is mild bilateral neural foraminal stenosis. There is no central canal stenosis. L5-S1: The disc does not extend beyond the endplate margin. There is severe bilateral facet joint ost eoarthritis. There is mild bilateral neural foraminal stenosis. There is no central canal stenosis. IMPRESSION: 1. Anterior and posterior fusion procedures at L4-L5. 2. Mild lumbar spondylosis. Reviewed, dictated and finalized at location A.
== END 2023-08-07 08:25 | disposition home or self-care (01) ==
LOC: CHSIMG 08:25
PROVIDERS: PCP Internal Medicine; Visit Provider Internal Medicine
DX: M54.50 Low back pain, unspecified (principal); Z98.1 Arthrodesis status; M43.06 Spondylolysis, lumbar region
CPT/HCPCS: 72148

== ENCOUNTER 2023-08-26 14:08 | Outpatient (RCR) | payer MEDICARE, OTHER, SELFPAY ==
--- NOTE | 2023-08-26 15:10 | OPREHPOC ---
Outpatient Therapy Plan of Care This is a Multidisciplinary Plan of Care that may contain components documented by all disciplines (PT, OT, and ST.) PT Problem 1 PT Problem #1 Knowledge Deficit PT Goal 1 Goal 1. independent and compliant with HEP. Target Visit 6 PT Problem 2 PT Problem #2 Pain PT Goal 1 Goal 1. decrease pain at worst to 3/10 or less in the lower back Target Visit 12 PT Problem 3 PT Problem #3 Impaired Range of Motion PT Goal 1 Goal 1. improve lumbar active flexion to ankles without increased pain 2. improve lumbar bilateral active side bending to 30 degrees or better without increased pain Target Visit 12 PT Problem 4 PT Problem #4 Impaired Strength PT Goal 1 Goal 1. improve core strength to 4-/5 or better 2. patient to bridge to neutral hip posture and hold for 30 seconds 3. improve bilateral hip strength to 4+/5 or better 4. improve bilateral knee strength to 5/5 Target Visit 12 PT Problem 5 PT Problem #5 Impaired Functional Mobil PT Goal 1 Goal 1. oswestry to display 30% or less functional deficits 2. patient to ambulate 6 minutes without rest for a total of 800ft or more 3. patient to ambulate up and down 1 flight of steps without increased pain/symptoms and 1 hand rail 4. patient to tolerate sitting more than 2 hours without symptoms increased Target Visit 12
--- NOTE | 2023-08-26 15:10 | PTOPEVAL1 ---
Assessment and note entered by JT File, PT Evaluation Information Assessment Status Evaluation Diagnosis DDD lumbar spine ICD-10 Condition Codes (PT) Pain in low back M54.50 Onset 08/11/23 Subjective Information patient reports her MD told her she has arthritis in the lower back. she reports she had a fusion a few years ago. she reports she was told she now has arthritis above and below the area. she reports she has increased pain after prolonged sitting, stair ambulation, and lifting. she reports her pain has been more flared up for about 1 month. she reports she has not been to see her spinal surgeon. patient reports she is much slower with activities, and avoids most lifting. she reports she has quick walking other than when in her pool. she reports she did have xrays and MRI recently. Reported Pain Level Pain Score 8: Self Report Assessment PT Clinical Summary mrs. jameson is a pleasant 68 yo woman who presents to skilled PT services for evaluation and treatment of lower back pain. she has a history of lumbar spinal fusion at L4/5. she now presents with signs and symptoms consistent with DDD/OA of the areas above and below this fusion. she displays decreased lumbar rom, weak core strength, weakness of the LE's (more proximal weakness), and pain in the lumbar region. she would benefit from continued skilled PT to improve her objective /functional deficits and progress towards return to prior level functional activity performance and quality of life. Plan of Care Interventions Electrical Stimulation,Gait Training,Hot Pack/Cold Pack,Manual Therapy,Neuro Re-education,Patient/ Caregiver Educati,Therapeutic Activities, Therapeutic Exercise PT Services Indicated Yes Treatment Frequency and 3x weekly for 12 visits Duration These treatments will address the objective and functional deficits as defined above. The patient will be advanced safely and appropriately in order for the patient to progress towards his/her prior level of function. Additional exercises will be introduced and as well as a comprehensive home exercise program upon discharge, if needed, ?to ensure carryover of functional gains achieved in the clinic. This treatment plan has been reviewed and agreement upon by the patient.
--- NOTE | 2023-09-11 13:12 | PCPTNOTE ---
Pt cancelled session. She notes she did not realize it was 1 pm.
--- NOTE | 2023-09-18 13:00 | PCPTNOTE ---
Patient cancelled session. Reports she is not feeling well.
--- NOTE | 2023-09-25 15:29 | OPREHPOC ---
Outpatient Therapy Plan of Care This is a Multidisciplinary Plan of Care that may contain components documented by all disciplines (PT, OT, and ST.) PT Problem 1 PT Problem #1 Knowledge Deficit PT Goal 1 Goal 1. independent and compliant with HEP. Target Visit 6 Progress Met PT Problem 2 PT Problem #2 Pain PT Goal 1 Goal 1. decrease pain at worst to 3/10 or less in the lower back Target Visit 12 Progress Not Met PT Problem 3 PT Problem #3 Impaired Range of Motion PT Goal 1 Goal 1. improve lumbar active flexion to ankles without increased pain 2. improve lumbar bilateral active side bending to 30 degrees or better without increased pain Target Visit 12 Progress Not Met PT Problem 4 PT Problem #4 Impaired Strength PT Goal 1 Goal 1. improve core strength to 4-/5 or better -not met 2. patient to bridge to neutral hip posture and hold for 30 seconds -met 3. improve bilateral hip strength to 4+/5 or better -not met 4. improve bilateral knee strength to 5/5 -not met Target Visit 12 PT Problem 5 PT Problem #5 Impaired Functional Mobil PT Goal 1 Goal 1. oswestry to display 30% or less functional deficits -not met 2. patient to ambulate 6 minutes without rest for a total of 800ft or more -met 3. patient to ambulate up and down 1 flight of steps without increased pain/symptoms and 1 hand rail -not met 4. patient to tolerate sitting more than 2 hours without symptoms increased -not met Target Visit 12 Progress Partially Met
--- NOTE | 2023-09-25 15:29 | PTOPDC ---
Assessment and note entered by Nette Yeboah, PT Evaluation Information Assessment Status Discharge Diagnosis DDD lumbar spine ICD-10 Condition Codes (PT) Pain in low back M54.50 Onset 08/28/23 Subjective Information Pooja Jacques reports her back is better but she is still having trouble carrying items up stairs and bending over to tend to her garden. She also has to change positions often with sitting and sleeping. She would like to make today her last day of formal PT and continue with home exercises. Reported Pain Level Pain Score 4: Self Report Assessment PT Clinical Summary Pooja Jacques has completed 12 skilled PT visits for low back pain. She is reporting improved symptoms overall but she still has difficulty being in one position sitting or laying too long, carrying items up stairs, and bending over to tend to her garden. She objectively demonstrates improved endurance with ambulation and improved core and hip strength. She continues to have decreased and painful lumbar AROM, decreased core strength, and decreased functional abilties. She would like to discontinue formal PT and continue with her HEP. Plan of Care PT Services Indicated Yes
== END 2023-09-25 20:00 | disposition home or self-care (01) ==
LOC: CHSPT 14:08
PROVIDERS: PCP Internal Medicine; Visit Provider Internal Medicine
DX: M54.50 Low back pain, unspecified (principal); M47.816 Spondylosis without myelopathy or radiculopathy, lumbar region
CPT/HCPCS: 97014; 97110; 97140; 97150; 97161; 97750; G0283

== ENCOUNTER 2023-11-27 13:05 | Outpatient (CLI) | payer MEDICARE, OTHER, SELFPAY ==
[2023-11-27 13:11] VITALS: BMI 29.3
[2023-11-27 13:19] VITALS: BP 142/71; PULSE 68; RESP 14; TEMP 36.3; O2SAT 98
[2023-11-27] MEDS: DENOSUMAB 60 MG/ML SYRINGE SUB-Q (13:38)
--- NOTE | 2023-11-27 13:43 | PC.NURSE ---
Patient here for Prolia injection. Last given in May 2023. Education given. No concerns voiced. Reports had no problems in May with it. Injection adminsitered. SEE MAR/patient care notes. Tolerated well.
== END 2023-11-27 13:06 | disposition home or self-care (01) ==
PROVIDERS: PCP Internal Medicine; Visit Provider Internal Medicine
DX: M81.0 Age-related osteoporosis without current pathological fracture (principal)
CPT/HCPCS: 96372; J0897

== ENCOUNTER 2024-02-02 11:37 | Outpatient (CLI) | payer MEDICARE, SELFPAY ==
[2024-02-02 12:13] LABS: Creatinine Urine 57.98 mg/dL (40-278); MALB Creatinine Ratio 22.4 mg/g (0-30); Microalbumin Urine Random < 13.0 mg/L
[2024-02-02 12:15] LABS: Hemoglobin A1C 5.9 % (<5.7)
[2024-02-02 12:54] LABS: Alanine Aminotransferase 14 U/L (14-59); Albumin Level 3.8 g/dL (3.4-5.0); Alkaline Phosphatase 101 U/L (46-116); Anion Gap 11 mmol/L (4-12); Aspartate Amino Transferase < 10 U/L (15-37); Bilirubin,Total 0.7 mg/dL (0.00-1.00); Blood Urea Nitrogen 14 mg/dL (7-18); Calcium 9.2 mg/dL (8.5-10.1); Carbon Dioxide 27 mmol/L (21-32); Chloride 105 mmol/L (98-108); Cholesterol 187 mg/dL (0-200); Creatine Kinase 45 U/L (26-192); Estimated Glomerular Filt Rate > 60; Glucose 108 mg/dL (70-99); HDL Direct 57 mg/dL (40-60); LDL Cholesterol Calculated 107 mg/dL (<130); Osmolality Calculated 297 mOsm/kg (285-295); Potassium 4.5 mmol/L (3.5-5.1); Sodium 143 mmol/L (136-145); Thyroid Stimulating Hormone 1.89 uIU/mL (0.36-3.74); Total Protein 6.6 g/dL (6.4-8.2); Triglycerides 114 mg/dL (0-150)
== END 2024-02-02 11:38 | disposition home or self-care (01) ==
PROVIDERS: PCP Internal Medicine; Visit Provider Internal Medicine
DX: E11.9 Type 2 diabetes mellitus without complications (principal); E78.5 Hyperlipidemia, unspecified; E03.4 Atrophy of thyroid (acquired)
CPT/HCPCS: 36415; 80053; 80061; 82043; 82550; 83036; 84436; 84443

== ENCOUNTER 2024-02-19 09:56 | Outpatient (CLI) | payer MEDICARE, OTHER, SELFPAY ==
--- NOTE | ~2024-02-19 | CT_ITS ---
EXAMINATION:CT diagnostic chest wo con DATE: 02/19/2024 11:29 INDICATION: Cough and wheezing. Abnormal chest radiographs. TECHNIQUE: Computed tomography (CT) of the chest was performed without intravenous contrast. Automate d exposure control and iterative reconstruction technique were employed. The dose-length product (DLP ) was 130.75 mGy-cm. COMPARISON: Chest 2 views 02/19/2024. FINDINGS: The lungs demonstrate mild atelectasis. Calcified bilateral pulmonary nodules and calcified hilar lymph nodes are consistent with old granulomatous disease. No pleural effusion. The heart size is normal. There are coronary artery calcifications. No pericardial effusion. There is a small slidi ng hiatal hernia. There are changes of fundoplication of the stomach. There are changes of cholecyste ctomy. There is mild thoracic spondylosis. There is a chronic compression fracture of T8. IMPRESSION: 1. No abnormal correlate for the chest radiograph finding. 2. Mild atelectasis in the lungs. Reviewed, dictated and finalized at location A. METRY REGISTERED NURSE
--- NOTE | ~2024-02-19 | XR_ITS ---
CHEST RADIOGRAPH, PA AND LATERAL CLINICAL HISTORY: acute cough, wheezing . COMPARISON: 10/04/2020 TECHNIQUE: PA and lateral views of the chest. FINDINGS The cardiomediastinal silhouette is unremarkable. Asymmetric parenchyma within the right mid to lower lung field for which cross-sectional imaging (non contrast enhanced CT examination of the chest) is recommended for further evaluation is recommended. Remainder of the lungs are clear. Visualized osseous structures and soft tissues are unremarkable. IMPRESSION: Asymmetric parenchyma within the right mid to lower lung field for which cross-sectional imaging (non contrast enhanced CT examination of the chest) is recommended for further evaluation is recommended. Reviewed, dictated and finalized at location A. CAL SECRETARY RECEPTIONIST IMPRESSION: Asymmetric parenchyma within the right mid to lower lung field for which cross- sectional imaging (noncontrast enhanced CT examination of the chest) is recomme nded for further evaluation is recommended.
[2024-02-19 10:14] LABS: Basophils Absolute Auto 0.02 K/mm3 (0.00-0.10); Basophils Percent Auto 0.2 % (0.0-1.0); Eosinophils Absolute Auto 0.02 K/mm3 (0.02-0.50); Eosinophils Percent Auto 0.2 % (1.0-6.0); Hematocrit 38.1 % (35.0-42.0); Hemoglobin 12.4 g/dL (11.7-13.8); Immature Granulocyte Absolute 0.05 K/mm3 (0.00-0.00); Immature Granulocyte Percent A 0.6 % (0.0-0.0); Lymphocytes Absolute Auto 2.29 K/mm3 (1.10-4.50); Lymphocytes Percent Auto 27.2 % (18.0-42.0); Mean Corpuscular HGB Conc 32.5 g/dL (32-36); Mean Corpuscular Hemoglobin 28.4 pg (27.0-31.0); Mean Corpuscular Volume 87.4 fL (78.0-102.0); Mean Platelet Volume 9.4 fl (9.2-11.8); Monocytes Absolute Auto 0.43 K/mm3 (0.10-0.90); Monocytes Percent Auto 5.1 % (2.0-11.0); Neutrophils Absolute Auto 5.62 K/mm3 (1.70-7.20); Neutrophils Percent Auto 66.7 % (50.0-70.0); Platelet Count Result 305 K/mm3 (150-420); Red Blood Count 4.36 M/mm3 (4.20-5.40); Red Cell Distribution Width 12.9 % (11.6-14.4); White Blood Count 8.4 K/mm3 (4.8-10.8)
[2024-02-19 10:53] LABS: SARS-CoV-2 RNA PCR Negative (Negative)
[2024-02-19 10:55] LABS: Influenza A QL RT-PCR Negative (Negative); Influenza B QL RT-PCR Negative (Negative); RSV RNA, RT-PCR Negative (Negative)
[2024-02-19 11:10] LABS: Anion Gap 10 mmol/L (4-12); Blood Urea Nitrogen 14 mg/dL (7-18); Calcium 8.6 mg/dL (8.5-10.1); Carbon Dioxide 27 mmol/L (21-32); Chloride 105 mmol/L (98-108); Estimated Glomerular Filt Rate > 60; Glucose 152 mg/dL (70-99); Osmolality Calculated 297 mOsm/kg (285-295); Potassium 4.2 mmol/L (3.5-5.1); Sodium 142 mmol/L (136-145)
== END 2024-02-19 09:57 | disposition home or self-care (01) ==
PROVIDERS: PCP Internal Medicine; Visit Provider Internal Medicine
DX: R05.9 Cough, unspecified (principal); R06.2 Wheezing; J98.11 Atelectasis
CPT/HCPCS: 36415; 71046; 71250; 80048; 80053; 85025; 87637; 87651

== ENCOUNTER 2024-06-16 09:39 | Outpatient (CLI) | payer MEDICARE, OTHER, SELFPAY ==
--- NOTE | ~2024-06-16 | MM_ITS ---
EXAMINATION: MM screening carlyn BI w nakia HISTORY: Screening TECHNIQUE: Craniocaudal and mediolateral oblique 3-D tomosynthesis images were obtained and synthetic 2-D images were generated. CAD analysis was submitted and interpreted. COMPARISON: Comparison to multiple prior studies sequentially, with oldest reviewed study dated 03/12. BREAST PARENCHYMAL COMPOSITION: Not Dense: The breasts are almost entirely fatty. FINDINGS: There is no evidence of suspicious mass, calcification, or architectural distortion to sugg est malignancy in either breast. There has been no suspicious interval change. IMPRESSION: 1. No mammographic evidence of malignancy. 2. Recommend routine screening mammography in one year. BI-RADS Category 1: Negative Reviewed, dictated and finalized at location A.
[2024-06-16 10:04] VITALS: BP 161/73; PULSE 76; RESP 16; TEMP 35.8; O2SAT 98; BMI 30.2
[2024-06-16] MEDS: DENOSUMAB 60 MG/ML SYRINGE SUB-Q (10:14)
--- NOTE | 2024-06-16 10:23 | PC.NURSE ---
Patient here for Prolia injection. Education given. No concerns voiced. Injection administered. See MAR/Patient care notes. Tolerated well.
--- OUTSIDE RECORDS SUMMARY | 2024-06-16 10:29 | XMS_ITS | Referral Summary ---
Author Organization [facility] Address [address] [place] [id number] Care Team Providers Care Auto Self Service Station Attendant Name Role Phone No, Physician Primary Care Provider [phone] Allergies Active Allergy Reactions Criticality Noted Date Comments Alendronate Nausea only Medium 11/13/2018 Had gagging urge all the time when she took Azithromycin Nausea And Vomiting Medium 11/13/2018 Erythromycin Diarrhea,Vomiting Medium 07/29/2018 Thiopental Other (See comments) High 11/13/2018 Had back in the 1970's in a dentist office and they said I had a bad reaction and to never have again Medications albuterol HFA (PROVENTIL HFA,VENTOLIN HFA,PROAIR HFA) 90 mcg/actuation inhaler Inhale 2 puffs every 6 (six) hours as needed Active Accu-Chek Guide test strips strip USE 1 STRIP TO CHECK GLUCOSE ONCE DAILY 05/09/19 22 Active fluticasone propionate (Flovent Diskus) 250 mcg/actuation diskus inhaler Take 1 puff by mouth 2 (two) times a day 05/22/19 19 Active ipratropium (ATROVENT) 42 mcg (0.06 %) nasal spray Administer 2 sprays into affected nostril(s) 2 (two) times a day Active Accu-Chek Fastclix Lancet Drum misc USE 1 TO CHECK GLUCOSE ONCE DAILY 05/03/19 22 Active metFORMIN XR (GLUCOPHAGE XR) 500 mg 24 hr tabletIndications :type 2 diabetes mellitus Take 500 mg by mouth 2 (two) times a day 04/29/19 22 Active salmeteroL (SEREVENT DISKUS) 50 mcg/dose diskus inhaler Inhale 1 puff 2 (two) times a day Active polyethylene glycol (MIRALAX) 17 gram/dose powderIndications :constipation Take 17 g by mouth every morning Active cetirizine (ZyrTEC) 10 mg tabletIndications :Allergic Rhinitis Take 1 tablet (10 mg total) by mouth every morning Crush medications for 2 weeks after surgery 09/08/19 Active cholecalciferol (VITAMIN D-3) 25 mcg (1,000 unit) tabletIndications :Vitamin D Deficiency Take 1 tablet (1,000 Units total) by mouth nightly Crush medications for 2 weeks after surgery 09/08/19 Active Lacto.acidophilus -Bif.animalis 32 billion cell capsuleIndication s:GI health Take 1 tablet by mouth nightly Restart in 2 weeks after surgery 09/22/19 Active yx-xskbobh-zlb-ir on fm-FA-vitK (One-A-Day Women's Complete) 18 mg-400 mcg- 25 mcg tabletIndications :Vitamin Deficiency Prevention Take 1 tablet by mouth every morning Crush medications for 2 weeks after surgery 09/08/19 Active acetaminophen (TYLENOL) 32 mg/mLIndications: Pain Take 31.2 mL (1,000 mg total) by mouth every 6 (six) hours as needed for pain 473 mL 09/08/19 Active levothyroxine (SYNTHROID) 75 mcg tabletIndications :hypothyroidism Take 1 tablet (75 mcg total) by mouth director of convention services before breakfast Crush medications for 2 weeks after surgery 09/08/19 Active lovastatin (MEVACOR) 20 mg tabletIndications :hyperlipidemia Take 1 tablet (20 mg total) by mouth nightly Crush medications for 2 weeks after surgery 09/08/19 Active traZODone (DESYREL) 100 mg tabletIndications :insomnia associated with depression Take 1 tablet (100 mg total) by mouth as needed for depression or sleep at bedtime. Crush medications for 2 weeks after surgery 09/08/19 Active HYDROcodone-aceta minophen (HYCET) 10-325 mg/15 mL(15 mL) solution Take 15 mL by mouth every 6 (six) hours as needed (For pain) 300 mL 09/09/19 Active ondansetron ODT (ZOFRAN-ODT) 4 mg disintegrating tabletIndications :Prevention of Post-Operative Nausea and Vomiting Take 1 tablet (4 mg total) by mouth every 8 (eight) hours as needed for nausea or vomiting for up to 80 doses 20 tablet 3 10/11/19 Active prochlorperazine (COMPAZINE) 25 mg suppositoryIndica tions:Prevention of Chemotherapy-Danielle howie Nausea and Vomiting Insert 1 suppository (25 mg total) into the rectum every 12 (twelve) hours as needed for nausea or vomiting 12 suppository 2 09/08/19 22 022 Disconti nued(Sto p Taking at Discharg e) Active Problems Problem Noted Date Diagnosed Date Severe malnutrition 09/07/2021 Hiatal hernia with GERD 07/04/2021 Overview (07/04/2021): Added automatically from request for surgery [id number] Social History Tobacco Use Types Packs/Day Years Used Date Smoking Tobacco: Former Cigarettes Q uit: 1994 Smokeless Tobacco: Never AUDIT-C Answer Date Recorded Q1: How often do you have a drink containing alc ohol? Monthly or less 09/06/2021 Q2: How many drinks containi ng alcohol do you have on a typical day when you are drinking? 1 or 2 09/06/2021 Q3: How often do you have si x or more drinks on one occasion? Never 09/06/2021 Comments No Sex and Gender Information Value Date Recorded Sex Assigned at Not on file Legal Sex Female 2:08 PM CDT Gender Identity Not on file Sexual Orientation Not on file Last Filed Vital Signs Vital Sign Reading Time Taken Comments Blood Pressure 133/66 09/08/2021 8:45 AM CDT Pulse 74 09/08/2021 8:45 AM CDT Temperature 36.5 C (97.7 F) 09/08/2021 8:45 AM CDT Respiratory Rate 18 09/08/2021 4:06 AM CDT Oxygen Saturation 90% 09/08/2021 8:45 AM CDT Inhaled Oxygen Concentration - - Weight 70.8 kg (156 lb) 09/06/2021 6:20 PM CDT Height 154.9 cm (5' 1 ) 09/06/2021 6:20 PM CDT Body Mass Index 29.48 09/06/2021 6:20 PM CDT Plan of Treatment Not on file Insurance MEDICARE [employer] [place] Member Subscriber Plan / Payer ( fective 2019-Present) Name:Mariann Jacques Relation to Subscriber:Self Name:Mariann Jacques Payer ID:[id number] Group ID:Not on file Type:DX Urgent Care Address: [address] [place] [address] MEDICARE [facility] Advance Directives For more information, please contact: [phone] * Full Code (Latest Code Status on File) Date Activated Date Inactivated Comments 09/06/2021 5:35 PM 09/08/2021 5:32 PM * Full Code Date Activated Date Inactivated Comments 08/10/2021 2:03 PM 08/10/2021 7:24 PM Care Teams Auto Self Service Station Attendant Relationship Specialty Start Date End Date No, Physician PCP - General 09/27/21
--- OUTSIDE RECORDS SUMMARY | 2024-06-16 10:29 | XMS_ITS | Clinical Summary ---
Author Organization [facility] Address [address] [place] [id number] Care Team Providers Care Road Worker Name Role Phone No, Physician Primary Care Provider [phone] Allergies Active Allergy Reactions Criticality Noted Date [...] in 2 weeks after surgery 09/22/19 Active oc-cvaklqd-dtq-ir on fm-FA-vitK (One-A-Day Women's Complete) 18 mg-400 [...] 1 tablet (75 mcg total) by mouth crm system administrator before breakfast Crush medications for 2 weeks [...] (07/04/2021): Added automatically from request for surgery [id number] Surgical History Surgery Date Site/Laterality Comments APPENDECTOMY 02/17/1969 - 02/16/1970 TUBAL LIGATION 02/17/1975 - 02/17/1976 BLADDER SURGERY HYSTERECTOMY 02/18/2016 - 02/16/2017 SHOULDER SURGERY 2016, 2018 BACK SURGERY 02/17/2018 - 02/16/2019 CHOLECYSTECTOMY 02/17/2005 - 02/16/2006 Medical History Medical History Date Comments Type 2 diabetes mellitus (HCC) Hypothyroidism GERD (gastroesophageal reflux disease) Hyperlipidemia Osteoporosis PONV (postoperative nausea and vomiting) Family History Medical History Relation Name Comments Cancer Brother Cancer Father Cancer Mother Cancer Sister Anesthesia problems Neg Hx Relation Name Status Comments Brother Alive Father Mother Sister Alive Social History Tobacco Use Types Packs/Day Years [...] on file Sexual Orientation Not on file Obstetrics History Last Filed Vital Signs Vital Sign Reading [...] 09/06/2021 6:20 PM CDT Plan of Treatment Health Maintenance Due Date Last Done Comments Breast Cancer Screening-Mammogram 1954 Colon Cancer Screening-Colonoscopy 1954 Depression Screening 1954 Hepatitis C Screening 1954 Osteoporosis Screening-Bone Density Scan 1954 Hepatitis B Screening 1972 Zoster Vaccine (2 of 3) 12/27/2016 11/01/2016 Well Visit 65+ 2019 Fall Risk Assessment 09/08/2022 09/08/2021 Pneumococcal vaccine 65+ (3 of 3 - PCV20 or PCV21) 03/18/2023 03/18/2018, 03/08/2016 Covid-19 Vaccine (3 - 2023-2 5 season) 2023 09/22/2020, 08/25/2020 Influenza Vaccine (#1) 2023 , 10/21/2019, 11/09/2018, Additional history exists DTaP/Tdap/Td Vaccine (3 - Td or Tdap) 03/18/2028 03/18/2018, 04/19/2008 Insurance MEDICARE [employer] [place] [employer] [place] MEDICARE [employer] [place] [facility] Advance Directives For more information, please contact: [phone] * Full Code (Latest Code Status on File) Date Activated Date Inactivated Comments 09/06/2021 5:35 PM 09/08/2021 5:32 PM * Full Code Date Activated Date Inactivated Comments 08/10/2021 2:03 PM 08/10/2021 7:[address] Worker Relationship Specialty Start Date End Date No, Physician PCP - General 09/27/21
--- OUTSIDE RECORDS SUMMARY | 2024-06-16 10:29 | XMS_ITS | Clinical Summary ---
Author Organization [facility] Address [address] [place] [address] Care Team Providers Care Sap Pp Consultant Name Role Phone Mary Nguyen MD Primary Care Provider [phone] Allergies Active Allergy Reactions Criticality Noted Date Comments Azithromycin Nausea and Vomiting Medium 11/13/2018 Erythromycin Diarrhea,Vomiting Medium 07/29/2018 Alendronate Nausea Only Medium 11/13/2018 Had gagging urge all the time when she took Thiopental Other (see comment) High 11/13/2018 Had back in the 1970's in a dentist office and they said I had a bad reaction and to never have again Medications levothyroxine 50 MCG tabletIndicati ons:Hypothyroi dism Take 50 mcg by mouth every morning. Indications: Underactive Thyroid Activ e trazodone 100 MG tabletIndicati ons:Sleep Disorder Take 100 mg by mouth nightly at bedtime. Indications: Sleep Disorder Active omeprazole 40 MG capsuleIndicat ions:Gastroeso phageal Reflux Disease Take 40 mg by mouth daily. Indications: Gastroesophageal Reflux Disease Active salmeterol 50 MCG/DOSE diskus inhalerIndicat ions:Asthma Inhale 1 puff into the lungs 2 (two) times daily. Indications: Asthma Activ e Multiple Vitamin (DAILY VALUE MULTIVITAMIN) TabIndications :supplement Take 1 tablet by mouth daily. Indications: supplement Active albuterol sulfate HFA (PROAIR HFA) 108 (90 Base) MCG/ACT inhaler Inhale 2 puffs into the lungs every 6 (six) hours as needed for Wheezing or Shortness of breath (asthma). Active FLOVENT DISKUS 250 MCG/BLIST AEROSOL POWDER, BREATH ACTIVATEDIndic ations:Asthma Take 1 puff by mouth 2 (two) times a day. Indications: Asthma 5 05/22/19 Active lovastatin 20 MG tabletIndicati ons:Hyperchole sterolemia Take 20 mg by mouth nightly at bedtime. Indications: High Amount of Cholesterol in the Blood 0 07/07/19 Active polyethylene glycol (MIRALAX) packetIndicati ons:Constipati on Take 17 g by mouth daily. Indications: Constipation Active acetaminophen 500 MG tablet Take 500 mg by mouth every 6 (six) hours as needed for Pain. Activ e metFORMIN ER 500 MG 24 hr tabletIndicati ons:Diabetes Mellitus Take 500 mg by mouth daily. Indications: Diabetes Active ipratropium 0.06 % nasal sprayIndicatio ns:Seasonal Allergy 2 sprays by Nasal route 2 (two) times daily. Indications: Seasonal Allergy Active vitamin D3, cholecalcifero l, 1000 UNIT Tab tabletIndicati ons:on hold for surgery and last dose was 11/05/18 Take 1 tablet by mouth daily. Indications: on hold for surgery and last dose was 11/05/18 Active Probiotic Product (PROBIOTIC ADVANCED) CapIndications :supplement Take 1 tablet by mouth daily. Indications: supplement Active acetaminophen- codeine 300-30 MG tabletIndicati ons:Acute Pain < 7 Day Supply Take 1 tablet by mouth every 4 (four) hours as needed. Indications: Acute Pain < 7 Day Supply 40 tablet 11/20/19 Active cetirizine 10 MG tablet Take 10 mg by mouth daily. Active Active Problems Problem Noted Date Diagnosed Date Low back pain 11/18/2018 Parotitis 07/29/2018 Family History Medical History Relation Comments Cancer Brother Cancer Father Cancer Mother Diabetes Mother Cancer Sister Relation Status Comments Brother Father Mother Sister Social History Tobacco Use Types Packs/Day Years Used Date Smoking Tobacco: Former Cigarettes 2 20 0 07/29/1974 - 07/29/1994 Smokeless Tobacco: Never Comments:quit on and off Alcohol Use Standard Drinks/Week Comments No 0 (1 standard drink = 0.6 oz pur e alcohol) AUDIT-C Answer Date Recorded Frequency of Alcohol Consumption Never 07/30/2018 Average Number of Drinks Not on file 019 Frequency of Binge Drinking Not on file 07/18 Comments Unknown Sex and Gender Information Value Date Recorded Sex Assigned at Female 07/29/2018 7:43 PM CDT Legal Sex Female 6:00 PM CDT Gender Identity Female 07/29/2018 7:43 PM CDT Sexual Orientation Straight 07/29/2018 7: 43 PM CDT Last Filed Vital Signs Vital Sign Reading Time Taken Comments Blood Pressure 118/56 11/19/2018 12:26 PM CDT Pulse 67 11/19/2018 12:26 PM CDT Temperature 36.5 C (97.7 F) 11/19/2018 12:26 PM CDT Respiratory Rate 18 11/19/2018 12:26 PM CDT Oxygen Saturation 98% 11/19/2018 12:26 PM CDT Inhaled Oxygen Concentration - - Weight 67.1 kg (148 lb) 11/18/2018 5:50 AM CDT Height 149.9 cm (4' 11 ) 11/18/2018 5:50 AM CDT Body Mass Index 29.89 11/18/2018 5:50 AM CDT Plan of Treatment Health Maintenance Due Date Last Done Comments Colorectal Cancer Screening Colonoscopy (10 Years) 1954 Hepatitis C 1972 DTaP, Tdap and Td Vaccines ( 1 - Tdap) 1973 Mammogram Screening 1994 Zoster Vaccines (2 of 3) 12/27/2016 11/01/2016 Pneumococcal Vaccine: 50+ Ye ars (2 of 2 - PPSV23) 03/08/2017 03/08/2016 Dexa Scan (General) 2019 COVID-19 Vaccine ( - 2023-2 5 season) 2023 RSV Immunization or 60+ Years (1 - 1-dose 75+ series) 2029 Meningococcal B Vaccine Aged Out No l onger eligible based on patient's age to complete this topic Meningococcal Vaccine Aged Out No rey agustín eligible based on patient's age to complete this topic RSV Immunizations Under 20 Months Aged Out No longer eligible based on patient's age to complete this topic Medical Devices Implanted Type Area Rheumatology Specialist Device Identifier Shelf Expiration Date Model / Serial / Lot Noe Depuy Spine 45mm - [id number] Implanted:Qty: 2 on 11/18/2018 by Kirk Clark MD at [facility] Noe N/A: Spine Lumbar [employer] - A [employer] [id number] / / NA Screw Set Depuy 5.5mm - [id number] Implanted:Qty: 4 on 11/18/2018 by Kirk Clark MD at [facility] Screw N/A: Spine Lumbar [employer] - A [employer] [id number] / / NA Graft Bone Ic Chambers 10cc Lifenet - [id number] Implanted:Qty: 1 on 11/18/2018 by Kirk Clark MD at [facility] N/A: Spine Lumbar [facility] 01/11/2021 [id number] / / [id number] Prolift Expandable Spacer System Implanted:Qty: 1 on 11/18/2018 by Kirk Clark MD at [facility] N/A: Spine Lumbar [employer] 04/04/2020 [id number] / / [id number] Screw Viper Depuy 7 X 45mm - [id number] Implanted:Qty: 4 on 11/18/2018 by Kirk Clark MD at [facility] N/A: Spine Lumbar [employer] - A [employer] [id number] / / Explanted Type Area Rheumatology Specialist Device Identifier Shelf Expiration Date Model / Serial / Lot K-Wire Explanted:Qty: 2 on 11/18/2018 by Kirk Clark MD at [facility] N/A: Spine Lumbar [employer] - A [employer] [id number] / / NA Insurance [facility] Advance Directives * Full Code (Latest Code Status on File) Date Activated Date Inactivated Comments 11/18/2018 11:44 AM 11/19/2018 3:59 PM * Full Code Date Activated Date Inactivated Comments 07/29/2018 8:12 PM 08/02/2018 4:03 PM Care Teams Sap Pp Consultant Relationship Specialty Start Date End Date Mary Nguyen MD [address] [place] [address] PCP - General INTERNAL MEDICINE 07/29/18
== END 2024-06-16 09:40 | disposition home or self-care (01) ==
PROVIDERS: PCP Internal Medicine; Visit Provider Internal Medicine
DX: M81.0 Age-related osteoporosis without current pathological fracture (principal); Z12.31 Encounter for screening mammogram for malignant neoplasm of breast
CPT/HCPCS: 77063; 77067; 96372; J0897

== ENCOUNTER 2024-07-20 10:19 | Outpatient (CLI) | payer MEDICARE, SELFPAY ==
--- OUTSIDE RECORDS SUMMARY | 2024-07-20 10:41 | XMS_ITS | Referral Summary ---
Author Organization [facility] Address [address] [place] [address] Care Team Providers Care Pizzamaker Name Role Phone No, Physician Primary Care Provider [phone] Allergies Active Allergy Reactions Criticality Noted Date [...] in 2 weeks after surgery 09/22/19 Active fp-swfomav-vfo-ir on fm-FA-vitK (One-A-Day Women's Complete) 18 mg-400 [...] 1 tablet (75 mcg total) by mouth psychology assistant before breakfast Crush medications for 2 weeks [...] (07/04/2021): Added automatically from request for surgery [id number] Social History Tobacco Use Types Packs/Day Years [...] 6:20 PM CDT Height 154.9 cm (5' 1) 09/06/2021 6:20 PM CDT Body Mass Index 29.48 09/06/2021 6:20 PM CDT Plan of Treatment Not on file Insurance MEDICARE [place] [employer] [place] MEDICARE [facility] Advance Directives For more information, please contact: [phone] * Full Code (Latest Code Status on File) Date Activated Date Inactivated Comments 09/06/2021 5:35 PM 09/08/2021 5:32 PM * Full Code Date Activated Date Inactivated Comments 08/10/2021 2:03 PM 08/10/2021 7:24 PM Care Teams Pizzamaker Relationship Specialty Start Date End Date No, Physician PCP - General 09/27/21
--- OUTSIDE RECORDS SUMMARY | 2024-07-20 10:41 | XMS_ITS | Continuity of Care Document ---
Author Organization [facility] Address [address] [facility] [address] [address] Phone Care Team Providers Care Prover Name Role Phone Administrative, Provider Unavailable Unavail [...] Date Provider Providers Copied on Encounter [facility], [address] [place] [address], [address] [place] [address], tel:[phone] [facility] No Information Administrative Provider. [address] [place] [address], [id number], . tel:[phone] Independent Medical Examination [facility], [address] [place] [address], [id number], tel:[phone] [employer] [facility] right shoulder (chief complaint) Pain in right shoulder Shlomo Gates. [address] [place] [address], [id number], . tel:[phone] Family History Family Member Type Diagnosis Age [...]
--- OUTSIDE RECORDS SUMMARY | 2024-07-20 10:41 | XMS_ITS | Clinical Summary ---
Author Organization [facility] Address [address] [place] [address] Care Team Providers Care Obiee Report Developer Name Role Phone No, Physician Primary Care Provider [phone] Allergies Active Allergy Reactions Criticality Noted Date [...] in 2 weeks after surgery 09/22/19 Active fc-zrajotn-kdf-ir on fm-FA-vitK (One-A-Day Women's Complete) 18 mg-400 [...] 1 tablet (75 mcg total) by mouth silk snapper before breakfast Crush medications for 2 weeks [...] (07/04/2021): Added automatically from request for surgery [id number] Surgical History Surgery Date Site/Laterality Comments APPENDECTOMY [...] 5 season) 2023 09/22/2020, 08/25/2020 Influenza Vaccine (Season Ended) 2024 11/14/2020, 10/21/2019, 11/09/2018, Additional history exists DTaP/Tdap/Td Vaccine (3 - Td or Tdap) 03/18/2028 03/18/2018, 04/19/2008 Insurance MEDICARE [employer] [place] [employer]ARE [employer] [place] [facility] Advance Directives For more information, please contact: [phone] * Full Code (Latest Code Status on File) Date Activated Date Inactivated Comments 09/06/2021 5:35 PM 09/08/2021 5:32 PM * Full Code Date Activated Date Inactivated Comments 08/10/2021 2:03 PM 08/10/2021 7:24 PM Care Teams Obiee Report Developer Relationship Specialty Start Date End Date No, Physician PCP - General 09/27/21
[2024-07-20 10:45] LABS: Hematocrit 38.5 % (35.0-42.0); Hemoglobin 12.5 g/dL (11.7-13.8); Mean Corpuscular HGB Conc 32.5 g/dL (32-36); Mean Corpuscular Hemoglobin 28.5 pg (27.0-31.0); Mean Corpuscular Volume 87.7 fL (78.0-102.0); Mean Platelet Volume 9.6 fl (9.2-11.8); Platelet Count Result 346 K/mm3 (150-420); Red Blood Count 4.39 M/mm3 (4.20-5.40); Red Cell Distribution Width 12.7 % (11.6-14.4); White Blood Count 5.7 K/mm3 (4.8-10.8)
[2024-07-20 10:47] LABS: Add Urine Microscopic? YES; Appearance Urine Clear (Clear); Bilirubin Urine Negative (Negative); Blood Urine Negative (Negative); Color Urine Yellow (Yellow); Glucose Urine UA Negative (Negative); Ketones Urine Negative (Negative); Leukocyte Esterase Ur 3+ (Negative); Nitrate Urine Negative (Negative); Protein Urine Trace (Negative); Specific Grav Ur 1.015 (1.010-1.020); pH Urine 7.5 (5.0-8.0)
[2024-07-20 10:54] LABS: Bacteria Urine 1+ /hpf; RBC Urine None seen /hpf (0-2); Squamous Epithelial Cell Urine Few /hpf (Few); WBC Urine 21-30 /hpf (0-3)
[2024-07-20 10:55] LABS: Mucus Urine Moderate /lpf
[2024-07-20 11:59] LABS: Alanine Aminotransferase 14 U/L (6-35); Albumin Level 3.8 g/dL (3.5-5.1); Alkaline Phosphatase 79 U/L (38-126); Anion Gap 6 mmol/L (4-12); Aspartate Amino Transferase 24 U/L (14-36); Bilirubin,Total 0.6 mg/dL (0.2-1.3); Blood Urea Nitrogen 9 mg/dL (7-17); Calcium 8.8 mg/dL (8.4-10.2); Carbon Dioxide 23 mmol/L (22-30); Chloride 110 mmol/L (98-107); Cholesterol 148 mg/dL (0-200); Creatine Kinase 46 U/L (30-135); Estimated Glomerular Filt Rate > 60; Glucose 107 mg/dL (65-110); HDL Direct 41 mg/dL; LDL Cholesterol Calculated 74 mg/dL (<130); Osmolality Calculated 286 mOsm/kg (285-295); Potassium 4.2 mmol/L (3.4-5.0); Sodium 139 mmol/L (137-145); Total Protein 6.1 g/dL (6.3-8.2); Triglycerides 167 mg/dL (<150)
[2024-07-20 12:01] LABS: Hemoglobin A1C 5.8 % (<5.7)
[2024-07-20 12:03] LABS: Creatinine Urine 149.4 mg/dL
[2024-07-20 12:15] LABS: Free T4 Free Thyroxine 1.61 ng/dL (0.78-2.19); Vitamin D 25 Hydroxy 81.3 ng/mL
[2024-07-20 13:45] LABS: Free T3 3.93 pg/mL (2.18-3.98)
== END 2024-07-20 10:20 | disposition home or self-care (01) ==
LOC: CHSLAB 10:21
PROVIDERS: PCP Internal Medicine; Visit Provider Internal Medicine
DX: I10 Essential (primary) hypertension (principal); E11.9 Type 2 diabetes mellitus without complications; E78.2 Mixed hyperlipidemia; E03.4 Atrophy of thyroid (acquired); M81.0 Age-related osteoporosis without current pathological fracture; K21.00 Gastro-esophageal reflux disease with esophagitis, without bleeding
CPT/HCPCS: 36415; 80053; 80061; 81001; 82043; 82306; 82550; 83036; 84439; 84443; 84481; 85027

== ENCOUNTER 2024-10-25 10:46 | Outpatient (CLI) | payer MEDICARE, OTHER, SELFPAY ==
--- OUTSIDE RECORDS SUMMARY | 2016-07-07 19:00 | XMS_ITS | Continuity of Care Document ---
Author Organization [facility] Address [address] [facility] [address] [address] Phone Care Team Providers Care Biofuels Engineering Manager Name Role Phone Administrative, Provider Unavailable Unavail [...] Date Provider Providers Copied on Encounter Orthopedic [employer] [facility], [address] [place] [address], [address] [place] [address], tel:[phone] Orthopedic [employer] [facility] No Information Administrative Provider. [address] [place] [address], [id number], . tel:[phone] Independent Medical Examination [facility] Orthopedic [employer] [facility], [address] [place] [address], [id number], tel:[phone] [employer] [facility] right shoulder (chief complaint) Pain in right shoulder Shlomo Gates. [address] [place] [address], [id number], . tel:[phone] Family History Family Member Type Diagnosis Age At Onset Mother Problem (finding) Cancer, unknown Sister Problem (finding) Cancer, unknown Mother Problem (finding) diabetes melli tus in first degree relative Brother Problem (finding) seizure disorder Payers Payer name Insurance type Covered alliance party ID Authoriza tion(s) No Information Social [...]
[2024-10-25 11:04] LABS: Hematocrit 39.1 % (35.0-42.0); Hemoglobin 12.7 g/dL (11.7-13.8); Mean Corpuscular HGB Conc 32.5 g/dL (32-36); Mean Corpuscular Hemoglobin 28.9 pg (27.0-31.0); Mean Corpuscular Volume 89.1 fL (78.0-102.0); Platelet Count Result 331 K/mm3 (150-420); Red Blood Count 4.39 M/mm3 (4.20-5.40); White Blood Count 6.9 K/mm3 (4.8-10.8)
--- OUTSIDE RECORDS SUMMARY | 2024-10-25 11:14 | XMS_ITS | Clinical Summary ---
Author Organization [facility] Address [address] [place] [address] Care Team Providers Care Judge'S Clerk Name Role Phone No, Physician Primary Care Provider [phone] Allergies Active Allergy Reactions Criticality Noted Date [...] in 2 weeks after surgery 09/22/19 Active kl-uuqaywt-ozs-ir on fm-FA-vitK (One-A-Day Women's Complete) 18 mg-400 [...] 1 tablet (75 mcg total) by mouth receiving operator before breakfast Crush medications for 2 weeks [...] (07/04/2021): Added automatically from request for surgery [id number] Surgical History Surgery Date Site/Laterality Comments APPENDECTOMY 02/17/1969 - 02/16/1970 TUBAL LIGATION 02/17/1975 - 02/17/1976 BLADDER SURGERY HYSTERECTOMY 02/18/2016 - 02/16/2017 SHOULDER SURGERY 2016, 2018 BACK SURGERY 02/17/2018 - 02/16/2019 CHOLECYSTECTOMY 02/17/2005 - 02/16/2006 Medical History Medical History Date Comments Type 2 diabetes mellitus Hypothyroidism GERD (gastroesophageal reflux disease) Hyperlipidemia Osteoporosis [...] 03/18/2023 03/18/2018, 03/08/2016 Covid-19 Vaccine (3 - 2024-2 6 season) 2024 09/22/2020, 08/25/2020 Influenza Vaccine (#1) 2024 , 10/21/2019, 11/09/2018, Additional history exists DTaP/Tdap/Td Vaccine (3 - Td or Tdap) 03/18/2028 03/18/2018, 04/19/2008 Insurance MEDICARE [employer] [place] MEDICARE [employer] [place] [facility] Advance Directives For more information, please contact: [phone] * Full Code (Latest Code Status on File) Date Activated Date Inactivated Comments 09/06/2021 5:35 PM 09/08/2021 5:32 PM * Full Code Date Activated Date Inactivated Comments 08/10/2021 2:03 PM 08/10/2021 7:24 PM Care Teams Judge'S Clerk Relationship Specialty Start Date End Date No, Physician PCP - General 09/27/21
[2024-10-25 11:34] LABS: CRP < 0.5 mg/dL (<1.0); Cholesterol 230 mg/dL (0-200); Creatine Kinase 39 U/L (30-135); HDL Direct 42 mg/dL; Triglycerides 181 mg/dL (<150)
== END 2024-10-25 10:47 | disposition home or self-care (01) ==
LOC: CHSLAB 10:48
PROVIDERS: PCP Internal Medicine; Visit Provider Internal Medicine
DX: E78.2 Mixed hyperlipidemia (principal); M79.10 Myalgia, unspecified site
CPT/HCPCS: 36415; 80061; 82085; 82550; 85027; 85652; 86140

== ENCOUNTER 2024-11-17 14:17 | Outpatient (CLI) | payer MEDICARE, OTHER, SELFPAY ==
--- NOTE | ~2024-11-17 | XR_ITS ---
EXAMINATION: XR hip BI wo pelvis, 11/17/2024 14:30 CDT HISTORY: BILATERAL HIP PAIN COMPARISON: No comparisons available. Findings: No acute fracture or malalignment. No significant degenerative changes. Soft tissues unremarkable. Impression: No acute fracture or malalignment. Reviewed, dictated and finalized at location P. Impression: No acute fracture or malalignment.
--- OUTSIDE RECORDS SUMMARY | 2024-11-17 14:25 | XMS_ITS | Clinical Summary ---
Author Organization [facility] Address [address] [place] [address] Care Team Providers Care Automotive Product Specialist Name Role Phone Mary Nguyen MD Primary Care Provider [phone] Allergies Active Allergy Reactions Criticality Noted Date [...] 5:50 AM CDT Height 149.9 cm (4' 11) 11/18/2018 5:50 AM CDT Body Mass Index [...] 03/08/2016 Dexa Scan (General) 2019 COVID-19 Vaccine (1 - 2023-2 5 season) 2024 RSV Immunization or 60+ Years (1 - [...] this topic Medical Devices Implanted Type Area Supervisor Paint Device Identifier Shelf Expiration Date Model / Serial / Lot Noe Depuy Spine 45mm - [id number] Implanted:Qty: 2 on 11/18/2018 by Kirk Clark MD at [facility] Noe N/A: Spine Lumbar [employer] - A [employer] [id number] / / NA Screw Set Depuy 5.5mm - [id number] Implanted:Qty: 4 on 11/18/2018 by Kirk Clark MD at [facility] Screw N/A: Spine Lumbar [employer] - A [employer] [id number] / / NA Graft Bone Ic Chambers 10cc Lifenet - [id number] Implanted:Qty: 1 on 11/18/2018 by Kirk Clark MD at [facility] N/A: Spine Lumbar [facility] 01/11/2021 [id number] / / [id number] Prolift Expandable Spacer System Implanted:Qty: 1 on 11/18/2018 by Kirk Clark MD at [facility] N/A: Spine Lumbar [employer] 04/04/2020 [id number] / / [id number] Screw Viper Depuy 7 X 45mm - [id number] Implanted:Qty: 4 on 11/18/2018 by Kirk Clark MD at [facility] N/A: Spine Lumbar [employer] - [employer] [id number] / / Explanted Type Area Supervisor Paint Device Identifier Shelf Expiration Date Model / Serial / Lot K-Wire Explanted:Qty: 2 on 11/18/2018 by Kirk Clark MD at [facility] N/A: Spine Lumbar [employer] - [employer] [id number] / / NA Insurance [facility] Advance Directives * Full Code (Latest Code Status on File) Date Activated Date Inactivated Comments 11/18/2018 11:44 AM 11/19/2018 3:59 PM * Full Code Date Activated Date Inactivated Comments 07/29/2018 8:12 PM 08/02/2018 4:03 PM Care Teams Automotive Product Specialist Relationship Specialty Start Date End Date Mary Nguyen MD [address] [place] [address] PCP - General INTERNAL MEDICINE 07/29/18
--- OUTSIDE RECORDS SUMMARY | 2024-11-17 14:25 | XMS_ITS | Clinical Summary ---
Author Organization [facility] Address [address] [place] [phone] Care Team Providers Care Transport Medic Name Role Phone No, Physician Primary Care Provider Allergies Active Allergy Reactions Criticality Noted Date [...] in 2 weeks after surgery 09/22/19 Active pb-xmzvsqd-fnl-ir on fm-FA-vitK (One-A-Day Women's Complete) 18 mg-400 [...] 1 tablet (75 mcg total) by mouth farm owner operator before breakfast Crush medications for 2 [...] (07/04/2021): Added automatically from request for surgery [id number] Surgical History Surgery Date Site/Laterality Comments APPENDECTOMY [...] 03/18/2028 03/18/2018, 04/19/2008 Insurance MEDICARE [employer] [place] MEDICARE [employer] [place] [facility] Advance Directives For more information, please contact: [phone] * Full Code (Latest Code Status on File) Date Activated Date Inactivated Comments 09/06/2021 5:35 PM 09/08/2021 5:32 PM * Full Code Date Activated Date Inactivated Comments 08/10/2021 2:03 PM 08/10/2021 7:24 PM Care Teams Transport Medic Relationship Specialty Start Date End Date No, Physician PCP - General 09/27/21
== END 2024-11-17 14:18 | disposition home or self-care (01) ==
LOC: CHSIMG 14:20
PROVIDERS: PCP Internal Medicine; Visit Provider Internal Medicine
DX: M25.552 Pain in left hip (principal); M81.0 Age-related osteoporosis without current pathological fracture; M25.551 Pain in right hip
CPT/HCPCS: 73521

== ENCOUNTER 2024-11-22 14:31 | Outpatient (RCR) | payer MEDICARE, OTHER, SELFPAY ==
--- NOTE | 2024-11-25 10:43 | OPREHPOC ---
Outpatient Therapy Plan of Care This is a Multidisciplinary Plan of Care that may contain components documented by all disciplines (PT, OT, and ST.) PT Problem 1 PT Problem #1 Knowledge Deficit PT Goal 1 Goal / Goal Update independent and compliant with HEP Target Visit 6 PT Problem 2 PT Problem #2 Pain PT Goal 1 Goal / Goal Update decrease pain at worst to 3/10 or less in the lower back and hips. Target Visit 12 PT Problem 3 PT Problem #3 Impaired Strength PT Goal 1 Goal / Goal Update improve bilateral hip strength to 4+/5 or better overall 4/5 or better overall core strength Target Visit 12 PT Problem 4 PT Problem #4 Impaired Range of Motion PT Goal 1 Goal / Goal Update full active lumbar rom without pain to safely reach to floor to grab small items, and reach overhead to lift items to tall cabinets. Target Visit 12 PT Problem 5 PT Problem #5 Impaired Functional Mobility PT Goal 1 Goal / Goal Update patient to ambulate 6 minutes without rest for more than 1000ft without any AD. patient to safely squat and lift small object from floor with good mechanics and no pain. oswestry to display 20% or less functional deficits Target Visit 12
--- NOTE | 2024-11-25 10:43 | PTOPEVAL1 ---
Assessment and note entered by JT File, PT Evaluation Information Assessment Status Evaluation ICD-10 Condition Codes (PT) Pain in low back M54.50,Radiculopathy, lumbar region M54.16,Difficulty Walking R26.2, Abnormalities of gait and mobility R26.9,Weakness R53.1 Onset 11/17/2024 Subjective Information patient reports she thought her hip was the issue, but reports the xrays show that it might be her lower back. she reports the pain is behind her hip in the buttock region and lower back. she reports she does have a history of lower back fracture a few years ago. she reports she has a limp in her gait, and pain in the posterior R hip. she reports she is easily knocked off balance due to the pain in the posterior hip. prolonged positions, walking, and sitting in a hard chair all cause increased pain. patient confirms she has no groin pain. Reported Pain Level Pain Score 5: Self Report Assessment PT Clinical Summary mrs. jameson is a pleasant 69 yo woman who presents to skilled PT services for evaluation and treatment of R posterior hip pain. she presents with signs and symptoms consistent with DDD and spondylosis of the lumbar spine. she displays weak hips, decreased lumbar rom, decreased functional activity performance, and reduced quality of life. continued skilled PT is indicated to improve her objective/functional deficits to improve her objective/functional deficits and return to her prior level functional activity performance/ quality of life. Plan of Care Interventions Electrical Stimulation,Hot Pack/Cold Pack,Manual Therapy,Neuro Re-education,Patient/Caregiver Education,Therapeutic Activities,Therapeutic Exercise PT Services Indicated Yes Treatment Frequency and 3x weekly for 12 visits Duration These treatments will address the objective and functional deficits as defined above. The patient will be advanced safely and appropriately in order for the patient to progress towards his/her prior level of function. Additional exercises will be introduced and as well as a comprehensive home exercise program upon discharge, if needed, ?to ensure carryover of functional gains achieved in the clinic. This treatment plan has been reviewed and agreement upon by the patient.
--- NOTE | 2024-12-24 15:38 | OPREHPOC ---
Outpatient Therapy Plan of Care This is a Multidisciplinary Plan of Care that may contain components documented by all disciplines (PT, OT, and ST.) PT Problem 1 PT Problem #1 Knowledge Deficit PT Goal 1 Goal / Goal Update independent and compliant with HEP Target Visit 6 Progress Met PT Problem 2 PT Problem #2 Pain PT Goal 1 Goal / Goal Update decrease pain at worst to 3/10 or less in the lower back and hips. Target Visit 12 Progress Not Met PT Problem 3 PT Problem #3 Impaired Strength PT Goal 1 Goal / Goal Update improve bilateral hip strength to 4+/5 or better overall. met 4/5 or better overall core strength. not met Target Visit 12 Progress Partially Met PT Problem 4 PT Problem #4 Impaired Range of Motion PT Goal 1 Goal / Goal Update full active lumbar rom without pain to safely reach to floor to grab small items, and reach overhead to lift items to tall cabinets. Target Visit 12 Progress Not Met PT Problem 5 PT Problem #5 Impaired Functional Mobility PT Goal 1 Goal / Goal Update patient to ambulate 6 minutes without rest for more than 1000ft without any AD. patient to safely squat and lift small object from floor with good mechanics and no pain. oswestry to display 20% or less functional deficits Target Visit 12 Progress Not Met
--- NOTE | 2024-12-24 15:39 | PTOPDC ---
Assessment and note entered by JT File, PT Evaluation Information Assessment Status Discharge ICD-10 Condition Codes (PT) Pain in low back M54.50,Radiculopathy, lumbar region M54.16,Difficulty Walking R26.2, Abnormalities of gait and mobility R26.9,Weakness R53.1 Onset 11/17/2024 Subjective Information patient reports she is feeling not too bad overall. she reports it is becoming tolerable. she reports steps are the worst by far, and she has to take a minute to get moving once she is up and standing. she reports she is consistent with her HEP at home. Reported Pain Level Pain Score 3: Self Report Assessment PT Clinical Summary mrs. jameson presents to skilled PT services for her 12th skilled PT visit today. she displays improve lumbar extension, improved bilateral hip strength, and decreased overall pain/pain intensity from prior to beginning PT. as of this date, she feels she is confident with her HEP, and would like to hold from PT until she has follow up and bloodwork with her MD later in the year. as of this date, we will DC skilled PT and she will continue her HEP at home. Plan of Care PT Services Indicated Yes
== END 2024-12-24 20:00 | disposition home or self-care (01) ==
LOC: CHSPT 14:31
PROVIDERS: PCP Internal Medicine; Visit Provider Internal Medicine
DX: M54.50 Low back pain, unspecified (principal); M54.16 Radiculopathy, lumbar region; R26.2 Difficulty in walking, not elsewhere classified; R53.1 Weakness
CPT/HCPCS: 97014; 97110; 97140; 97161; G0283

== ENCOUNTER 2024-12-22 13:15 | Outpatient (CLI) | payer MEDICARE, OTHER, SELFPAY ==
[2024-12-22 13:22] VITALS: BP 140/73; PULSE 72; RESP 14; TEMP 36.4; O2SAT 97; BMI 29.3
[2024-12-22] MEDS: DENOSUMAB 60 MG/ML SYRINGE SUB-Q (13:25)
--- OUTSIDE RECORDS SUMMARY | 2024-12-23 12:05 | XMS_ITS | Clinical Summary ---
Author Organization [facility] Address [address] [place] [phone] Care Team Providers Care Repacker Name Role Phone No, Physician Primary Care [...] in 2 weeks after surgery 09/22/19 Active wi-vaotyon-zmp-ir on fm-FA-vitK (One-A-Day Women's Complete) 18 mg-400 [...] 1 tablet (75 mcg total) by mouth saw grinder before breakfast Crush medications for 2 weeks [...] (07/04/2021): Added automatically from request for surgery [id number] Surgical History Surgery Date Site/Laterality Comments APPENDECTOMY [...] of Treatment Not on file Insurance MEDICARE [facility] MEDICARE [facility] Advance Directives For more information, please contact: [phone] * Full Code (Latest Code Status on File) Date Activated Date Inactivated Comments 09/06/2021 5:35 PM 09/08/2021 5:32 PM * Full Code Date Activated Date Inactivated Comments 08/10/2021 2:03 PM 08/10/2021 7:24 PM Care Teams Repacker Relationship Specialty Start Date End Date No, Physician PCP - General 09/27/21
--- OUTSIDE RECORDS SUMMARY | 2024-12-23 12:05 | XMS_ITS | Clinical Summary ---
Author Organization [facility] Address [address] [place] [address] Care Team Providers Care Filter Press Tender Name Role Phone Mary Nguyen MD Primary Care Provider [phone] Allergies Active Allergy Reactions Criticality Noted Date [...] 50+ Ye ars (2 of 2 - PCV20 or PCV21) 03/08/2017 03/08/2016 Dexa Scan (General) 2019 COVID-19 Vaccine ( - 2024-2 6 season) 2024 Influenza Adult (#1) 2024 RSV Immunization or 60+ Years (1 - 1-dose 75+ series) 2029 Hepatitis A Vaccines Aged Out No long er eligible based on patient's age to complete this topic Meningococcal B Vaccine Aged Out No l onger eligible based on patient's age to complete this topic Meningococcal Vaccine Aged Out No rey agustín eligible based on patient's age to complete this topic RSV Immunizations Under 20 Months Aged Out No longer eligible based on patient's age to complete this topic Medical Devices Implanted Type Area Radiation Therapy Technician Device Identifier Shelf Expiration Date Model / Serial / Lot Noe Depuy Spine 45mm - [id number] Implanted:Qty: 2 on 11/18/2018 by Kirk Clark MD at [facility] Noe N/A: Spine Lumbar [employer] 1797-71-045 / / NA Screw Set Depuy 5.5mm - [id number] Implanted:Qty: 4 on 11/18/2018 by Kirk Clark MD at [facility] Screw N/A: Spine Lumbar [employer] [id number] / / NA Graft Bone Ic Chambers 10cc Lifenet - [id number] Implanted:Qty: 1 on 11/18/2018 by Kirk Clark MD at [facility] N/A: Spine Lumbar [facility] 01/11/2021 [id number] / / [id number] Prolift Expandable Spacer System Implanted:Qty: 1 on 11/18/2018 by Kirk Clark MD at [facility] N/A: Spine Lumbar [employer] 04/04/2020 [id number] / / [id number] Screw Viper Depuy 7 X 45mm - [id number] Implanted:Qty: 4 on 11/18/2018 by Kirk Clark MD at [facility] N/A: Spine Lumbar [employer] [id number] / / Explanted Type Area Radiation Therapy Technician Device Identifier Shelf Expiration Date Model / Serial / Lot K-Wire Explanted:Qty: 2 on 11/18/2018 by Kirk Clark MD at [facility] N/A: Spine Lumbar [employer] 2866-07-06 0 / / NA Insurance [facility] Advance Directives * Full Code (Latest Code Status on File) Date Activated Date Inactivated Comments 11/18/2018 11:44 AM 11/19/2018 3:59 PM * Full Code Date Activated Date Inactivated Comments 07/29/2018 8:12 PM 08/02/2018 4:03 PM Care Teams Filter Press Tender Relationship Specialty Start Date End Date Mary Nguyen MD [address] [place] [id number] PCP - General INTERNAL MEDICINE 07/29/18
== END 2024-12-22 13:16 | disposition home or self-care (01) ==
PROVIDERS: PCP Internal Medicine; Visit Provider Internal Medicine
DX: M81.0 Age-related osteoporosis without current pathological fracture (principal)
CPT/HCPCS: 96372; J0897

== ENCOUNTER 2024-12-27 11:53 | Outpatient (CLI) | payer MEDICARE, OTHER, SELFPAY ==
--- NOTE | ~2024-12-27 | DEXA_ITS ---
Bone Density Report Name: KRUPA NICHOLAS Age: 69 Sex: Female Ethnicity: White Date of : 1955 Indication: postmenopausal; screening for osteoporosis; height loss; Referring Provider: Mary Nguyne Study: Bone densitometry was performed. Exam Date: December 27, 2024 Accession number: [id number] Bone Density: Region BMD T-score Z-score Classification AP Spine(L1, L2, L3) 0.811 -1.9 0.2 Osteopenia Femoral Neck (Left) 0.520 -3.0 -1.1 Osteoporosis Total Hip (Left) 0.738 -1.7 -0.1 Osteopenia Femoral Neck (Right) 0.558 -2.6 -0.8 Osteoporosis Total Hip (Right) 0.749 -1.6 0.0 Osteopenia Femoral Neck Mean 0.539 -2.8 -1.0 Osteoporosis Total Hip Mean 0.744 -1.6 -0.1 Osteopenia World Health Organization criteria for BMD impression classify patients as: Normal (T-score at or above -1.0), Osteopenia (T-score between -1.0 and -2.5), or Osteoporosis (T-score at or below -2.5). 10-year Fracture Risk: FRAX not reported because: Some T-score for Spine Total or Hip Total or Femoral Neck at or below -2.5 Clinical Information Provided by Patient: Patient maximum height was 61 Menopause Age: 39 Does not regularly consume dairy products Onset of menses at age 13 Number of children 3 Impression: The patient has osteoporosis, based on the Left Femoral Neck T-score. Discussion: INCREASED RISK OF FRACTURE. BONE DENSITY IS UNDESIRABLY LOW AT ONE OR MORE SKELETAL SITES, CONSISTENT WITH POSTMENOPAUSAL OSTEOPOROSIS. This patient's lowest T-score meets the World Health Organization's (WHO) criteria for osteoporosis at one or more sites (T-score -2.5 or below). In untreated patients, the risk of osteoporotic fracture increases approximately two-fold for each 1.0 SD decrease in T-score. Low bone density is not the only risk factor for fracture; also consider factors such as patient's age, frailty or poor health, risk of falling, risk of injury, previous osteoporotic fracture, family history of osteoporosis, cigarette smoking, low body weight, etc. Not everyone with low bone mineral density has osteoporosis; osteomalacia and other metabolic bone disorders should also be considered. Patients who have osteoporosis should be evaluated for specific diseases and conditions (secondary causes) that may cause or contribute to bone loss. The [place] Association of Clinical Endocrinologists (AACE) and National Osteoporosis Foundation (NOF) recommend pharmacologic intervention for all postmenopausal women whose T-score is in this range. The patient should follow a healthful lifestyle (good nutrition with adequate calcium and vitamin D, and appropriate weight-bearing exercise). Follow-Up: Consider a repeat BMD and Vertebral Fracture Assessment (VFA) exam in 2 years or sooner if medically necessary, to reassess this patient's status. Reported by: NED on 12/27/2024 12:14:00 PM. Reviewed, dictated and finalized at location A.
--- OUTSIDE RECORDS SUMMARY | 2024-12-27 12:29 | XMS_ITS | Clinical Summary ---
Author Organization [facility] Address [address] [place] [id number] Care Team Providers Care Green Chain Off Bearer Name Role Phone No, Physician Primary Care Provider [phone] Allergies Active Allergy Reactions Criticality Noted Date [...] in 2 weeks after surgery 09/22/19 Active bs-cmyyqql-rqs-ir on fm-FA-vitK (One-A-Day Women's Complete) 18 mg-400 [...] 1 tablet (75 mcg total) by mouth air drier before breakfast Crush medications for 2 weeks [...] (07/04/2021): Added automatically from request for surgery [id number] Surgical History Surgery Date Site/Laterality Comments APPENDECTOMY [...] of Treatment Not on file Insurance MEDICARE [facility] MEDICARE [facility] Advance Directives For more information, please contact: [phone] * Full Code (Latest Code Status on File) Date Activated Date Inactivated Comments 09/06/2021 5:35 PM 09/08/2021 5:32 PM * Full Code Date Activated Date Inactivated Comments 08/10/2021 2:03 PM 08/10/2021 7:24 PM Care Teams Green Chain Off Bearer Relationship Specialty Start Date End Date No, Physician PCP - General 09/27/21
--- OUTSIDE RECORDS SUMMARY | 2024-12-27 12:29 | XMS_ITS | Clinical Summary ---
Author Organization [facility] Address [address] [place] [address] Care Team Providers Care Brim Pouncing Machine Operator Name Role Phone Mary Nguyen MD Primary Care Provider [phone] Allergies Active Allergy Reactions Criticality Noted Date [...] this topic Medical Devices Implanted Type Area Chimney Builder Device Identifier Shelf Expiration Date Model / Serial / Lot Noe Depuy Spine 45mm - [id number] Implanted:Qty: 2 on 11/18/2018 by Kirk Clark MD at [facility] Noe N/A: Spine Lumbar [employer] [id number] / / NA Screw Set Depuy 5.5mm - [id number] Implanted:Qty: 4 on 11/18/2018 by Kirk Clark MD at [facility] Screw N/A: Spine Lumbar [employer] [id number] / / NA Graft Bone Ic Chambers 10cc Lifenet - [id number] Implanted:Qty: 1 on 11/18/2018 by Kirk Clark MD at [facility] N/A: Spine Lumbar [facility] 01/11/2021 [id number] / / [id number] Prolift Expandable Spacer System Implanted:Qty: 1 on 11/18/2018 by Kirk Clark MD at [facility] N/A: Spine Lumbar [employer] 04/04/2020 [id number] / / [id number] Screw Viper Depuy 7 X 45mm - [id number] Implanted:Qty: 4 on 11/18/2018 by Kirk Clark MD at [facility] N/A: Spine Lumbar [employer] [id number] / / Explanted Type Area Chimney Builder Device Identifier Shelf Expiration Date Model / Serial / Lot K-Wire Explanted:Qty: 2 on 11/18/2018 by Kirk Clark MD at [facility] N/A: Spine Lumbar [employer] 2866-07-06 0 / / NA Insurance [facility] Advance Directives * Full Code (Latest Code Status on File) Date Activated Date Inactivated Comments 11/18/2018 11:44 AM 11/19/2018 3:59 PM * Full Code Date Activated Date Inactivated Comments 07/29/2018 8:12 PM 08/02/2018 4:03 PM Care Teams Brim Pouncing Machine Operator Relationship Specialty Start Date End Date Mary Nguyen MD [address] [place] [phone] PCP - General INTERNAL MEDICINE 07/29/18
== END 2024-12-27 11:54 | disposition home or self-care (01) ==
LOC: CHSIMG 11:54
PROVIDERS: PCP Internal Medicine; Visit Provider Internal Medicine
DX: M81.0 Age-related osteoporosis without current pathological fracture (principal); M85.89 Other specified disorders of bone density and structure, multiple sites
CPT/HCPCS: 77080

== ENCOUNTER 2025-01-05 13:45 | Outpatient (CLI) | payer MEDICARE, OTHER, SELFPAY ==
--- OUTSIDE RECORDS SUMMARY | 2016-07-07 18:00 | XMS_ITS | Continuity of Care Document ---
Author Organization [facility] Address [address] [facility] [address] [address] Phone Care Team Providers Care Misdraw Hand Name Role Phone Administrative, Provider Unavailable Unavail able Allergies, Adverse Reactions, Alerts Substance Reaction Status Criticality azithromycin Active No Information SODIUM PHENOLATE Active No Informat ion Procedures Procedure Date Xray Copy X-ray exam shoulder minimum 2 views Independent Medical Examination LI Prolonged serv, w/o contact, 1st hr Advance Directives Directive Yes / No Effective Date File Name No Information Encounters Encounter Description Practice Location Reason(s) For Visit Diagnoses Date Provider Providers Copied on Encounter Orthopedic [facility], [address] [place] [address], [address] [place] [address], tel:[phone] [facility] No Information Administrative Provider. [address] [place] [address], [id number], . tel:[phone] Independent Medical Examination [facility], [address] [place] [address], [id number], tel:[email or web address] [facility] right shoulder (chief complaint) Pain in right shoulder 7 Shlomo Gates. [address] [place] [address], [id number], . tel:[phone] Family History Family Member Type Diagnosis Age At Onset Mother Problem (finding) Cancer, unknown Sister Problem (finding) Cancer, unknown Mother Problem (finding) diabetes melli tus in first degree relative Brother Problem (finding) seizure disorder Payers Payer name Insurance type Covered democrat ID Authoriza tion(s) No Information Social History Type Description Quantity Date Captured Comments Sex Female Smoking Status No Information Chief Complaint And Reason For Visit No Information Reason For Referral Reason For Referral No Information Plan Of Treatment Date Type Action Status Referral Ordered: X-ray exam shoulder minimum 2 views RT ordered History Of Present Illness Encounter Date Complaint History Of Prese nt Illness right shoulder Mariann woods ts to the office for right shoulder complaints. Functional Status Date Functional Assessmen t No Information Instructions Date Instruction Additional Infor mation No Information Assessments Type Assessment Date No Information Patient Care Teams Name Effective Dates (start - stop) Status Members No Information
--- OUTSIDE RECORDS SUMMARY | 2016-07-07 18:00 | XMS_ITS | Continuity of Care Document ---
Author Organization [facility] Address [address] [facility] [address] [address] Phone Care Team Providers Care Infusion Rn Name Role Phone Administrative, Provider Unavailable Unavail [...] Date Provider Providers Copied on Encounter Orthopedic [facility], [address] [place] [address], [address] [place] [address], tel:[phone] [facility] No Information Administrative Provider. [address] [place] [address], [id number], . tel:[phone] Independent Medical Examination [facility] Orthopedic [facility], [address] [place] [address], [id number], tel:[phone] [employer] [facility] right shoulder (chief complaint) Pain in right shoulder 7 Shlomo Gates. [address] [place] [address], [id number], . tel:[phone] Family History Family Member Type Diagnosis Age At Onset Mother Problem (finding) Cancer, unknown Sister Problem (finding) Cancer, unknown Mother Problem (finding) diabetes melli tus in first degree relative Brother Problem (finding) seizure disorder Payers Payer name Insurance type Covered republican ID Authoriza tion(s) No Information Social History [...]
--- OUTSIDE RECORDS SUMMARY | 2016-07-07 18:00 | XMS_ITS | Continuity of Care Document ---
Author Organization [facility] Address [address] [facility] [address] [address] Phone Care Team Providers Care Sand Mill Grinder Name Role Phone Administrative, Provider Unavailable Unavail [...] Date Provider Providers Copied on Encounter Orthopedic [employer] [facility], [address] [place] [address], [address] [place] [address], tel:[phone] [facility] [employer] [facility] No Information Administrative Provider. [address] [place] [address], [id number], . tel:[phone] Independent Medical Examination [facility]opedic [employer] [facility], [address] [place] [address], [id number], tel:[phone] [email or web address] [facility] right shoulder (chief complaint) Pain in right shoulder 7 Shlomo Gates. [address] [place] [address], [id number], . tel:[phone] Family History Family Member Type Diagnosis Age At Onset Mother Problem (finding) Cancer, unknown Sister Problem (finding) Cancer, unknown Mother Problem (finding) diabetes melli tus in first degree relative Brother Problem (finding) seizure disorder Payers Payer name Insurance type Covered green party ID Authoriza tion(s) No Information Social History [...]
--- OUTSIDE RECORDS SUMMARY | 2016-07-07 18:00 | XMS_ITS | Continuity of Care Document ---
Author Organization [facility] Address [address] [facility] o[address] [address] Phone Care Team Providers Care Manager Publishing Name Role Phone Administrative, Provider Unavailable Unavail [...] Date Provider Providers Copied on Encounter Orthopedic [employer] [facility], [address] [place] [address], [address] [place] [address], tel:[phone] [facility] [facility] No Information Administrative Provider. [address] [place] [address], [id number], . tel:[phone] Independent Medical Examination [facility] Orthopedic [employer] [facility], [address] [place] [address], [id number], tel:[phone] [employer] [facility] right shoulder (chief complaint) Pain in right shoulder 7 Shlomo Gates. [address] [place] [address], [id number], . tel:[phone] Family History Family Member Type Diagnosis Age At Onset Mother Problem (finding) Cancer, unknown Sister Problem (finding) Cancer, unknown Mother Problem (finding) diabetes melli tus in first degree relative Brother Problem (finding) seizure disorder Payers Payer name Insurance type Covered libertarian ID Authoriza tion(s) No Information Social History [...]
--- OUTSIDE RECORDS SUMMARY | 2016-07-07 18:00 | XMS_ITS | Continuity of Care Document ---
Author Organization [facility] Address [address] [facility] [address] [address] Phone Care Team Providers Care Comptometer Operator Name Role Phone Administrative, Provider Unavailable Unavail [...] Date Provider Providers Copied on Encounter Orthopedic [facility], [address] [place] [address], [address] [place] [address], tel:[phone] [facility] No Information Administrative Provider. [address] [place] [address], [id number], . tel:[phone] Independent Medical Examination [facility] Orthopedic [facility], [address] [place] [address], [id number], tel:[phone] [employer] [facility] right shoulder (chief complaint) Pain in right shoulder 7 Shlomo Gates. [address] [place] [address], [id number], . tel:[phone] Family History Family Member Type Diagnosis Age At Onset Mother Problem (finding) Cancer, unknown Sister Problem (finding) Cancer, unknown Mother Problem (finding) diabetes melli tus in first degree relative Brother Problem (finding) seizure disorder Payers Payer name Insurance type Covered constitution party ID Authoriza tion(s) No Information Social [...]
--- OUTSIDE RECORDS SUMMARY | 2016-07-07 18:00 | XMS_ITS | Continuity of Care Document ---
Author Organization [facility] Address [address] [facility] o[address] [address] Phone Care Team Providers Care Offal Baler Name Role Phone Administrative, Provider Unavailable Unavail [...] Date Provider Providers Copied on Encounter [facility]opedic [facility], [address] [place] [address], [address] [place] [address], tel:[phone] [facility] No Information Administrative Provider. [address] [place] [address], [id number], . tel:[phone] Independent Medical Examination COUNT INCLUDES [facility]opedic [facility], [address] [place] [address], [id number], tel:[phone] [employer] [facility] right shoulder (chief complaint) Pain in right shoulder 7 Shlomo Gates. [address] [place] [address], [id number], . tel:[phone] Family History Family Member Type Diagnosis [...]
--- OUTSIDE RECORDS SUMMARY | 2016-07-07 18:00 | XMS_ITS | Continuity of Care Document ---
Author Organization [facility] Address [address] [facility] [address] [address] Phone Care Team Providers Care Tester Rocket Engine Name Role Phone Administrative, Provider Unavailable Unavail [...] Date Provider Providers Copied on Encounter [facility]opedic [facility], [address] [place] [address], [address] [place] [address], tel:[phone] [facility] No Information Administrative Provider. [address] [place] [address], [id number], . tel:[phone] Independent Medical Examination [facility] Orthopedic [facility], [address] [place] [address], [id number], tel:[phone] [employer] [facility] right shoulder (chief complaint) Pain in right shoulder 7 Shlomo Gates. [address] [place] [address], [id number], . tel:[phone] Family History Family Member Type Diagnosis [...]
--- OUTSIDE RECORDS SUMMARY | 2016-07-07 18:00 | XMS_ITS | Continuity of Care Document ---
Author Organization [facility] Address [address] [facility] [address] [address] Phone Care Team Providers Care General Maintenance Technician Name Role Phone Administrative, Provider Unavailable Unavail [...] Date Provider Providers Copied on Encounter Orthopedic [employer] [facility], [address] [place] [address], [address] [place] [address], tel:[phone] [facility] [employer] [facility] No Information Administrative Provider. [address] [place] [address], [id number], . tel:[phone] Independent Medical Examination [facility] Orthopedic [employer] [facility], [address] [place] [address], [id number], tel:[phone] [employer] [facility] right shoulder (chief complaint) Pain in right shoulder 7 Shlomo Gates. [address] [place] [address], [id number], . tel:[phone] Family History Family Member Type Diagnosis [...]
--- OUTSIDE RECORDS SUMMARY | 2016-07-07 18:00 | XMS_ITS | Continuity of Care Document ---
Author Organization [facility] Address [address] [facility] [address] [address] Phone Care Team Providers Care Chips Screen Tender Name Role Phone Administrative, Provider Unavailable Unavail [...] Date Provider Providers Copied on Encounter Orthopedic [employer] [facility], [address] [place] [address], [address] [place] [address], tel:[phone] [facility] [employer] [facility] No Information Administrative Provider. [address] [place] [address], [id number], . tel:[phone] Independent Medical Examination [facility] Orthopedic [employer] [facility], [address] [place] [address], [id number], tel:[phone] [employer] [facility] right shoulder (chief complaint) Pain in right shoulder 7 Shlomo Gates. [address] [place] [address], [id number], . tel:[phone] Family History Family Member Type Diagnosis Age [...]
--- OUTSIDE RECORDS SUMMARY | 2016-07-07 18:00 | XMS_ITS | Continuity of Care Document ---
Author Organization [facility] Address [address] [facility] [address] [address] Phone Care Team Providers Care Multimedia Assistant Name Role Phone Administrative, Provider Unavailable Unavail [...] Date Provider Providers Copied on Encounter Orthopedic [facility], [address] [place] [address], [address] [place] [address], tel:[phone] [facility] No Information Administrative Provider. [address] [place] [address], [id number], . tel:[phone] Independent Medical Examination [facility] Orthopedic [facility], [address] [place] [address], [id number], tel:[phone] [employer] [facility] right shoulder (chief complaint) Pain in right shoulder 7 Shlomo Gates. [address] [place] [address], [id number], . tel:[phone] Family History Family Member Type Diagnosis [...]
--- OUTSIDE RECORDS SUMMARY | 2016-07-07 18:00 | XMS_ITS | Continuity of Care Document ---
Author Organization [facility] Address [address] [facility] [address] [address] Phone Care Team Providers Care Delphi Programmer Name Role Phone Administrative, Provider Unavailable Unavail [...] Date Provider Providers Copied on Encounter Orthopedic [employer] [facility], [address] [place] [address], [address] [place] [address], tel:[phone] [facility] [employer] [facility] No Information Administrative Provider. [address] [place] [address], [id number], . tel:[phone] Independent Medical Examination [facility] Orthopedic [employer] [facility], [address] [place] [address], [id number], tel:[phone] [employer] [facility] right shoulder (chief complaint) Pain in right shoulder 7 Shlomo Gates. [address] [place] [address], [id number], . tel:[phone] Family History Family Member Type Diagnosis Age [...]
--- OUTSIDE RECORDS SUMMARY | 2016-07-07 18:00 | XMS_ITS | Continuity of Care Document ---
Author Organization [facility] Address [address] [facility] [address] [address] Phone Care Team Providers Care Parole Board Member Name Role Phone Administrative, Provider Unavailable Unavail [...] Date Provider Providers Copied on Encounter Orthopedic [facility], [address] [place] [address], [address] [place] [address], tel:[phone] [facility] No Information Administrative Provider. [address] [place] [address], [id number], . tel:[phone] Independent Medical Examination [facility] Orthopedic [facility] [facility], [address] [place] [address], [id number], tel:[phone] [employer] [facility] right shoulder (chief complaint) Pain in right shoulder 7 Shlomo Gates. [address] [place] [address], [id number], . tel:[phone] Family History Family Member Type Diagnosis Age [...]
--- NOTE | ~2025-01-05 | XR_ITS ---
EXAMINATION: XR knee RT 3V, 01/05/2025 13:51 CONSERVATION SCIENTIST HISTORY: R KNEE PAIN / WITH STANDING VIEWS COMPARISON: No comparisons available. Findings: No acute fracture or malalignment. No significant degenerative changes. Soft tissues unremarkable. Impression: No acute fracture or malalignment. Reviewed, dictated and finalized at location P. ERVATION SCIENTIST Impression: No acute fracture or malalignment.
--- OUTSIDE RECORDS SUMMARY | 2025-01-05 20:36 | XMS_ITS | Clinical Summary ---
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 Crush medications for 2 weeks [...] (07/04/2021): Added automatically from request for surgery [id number] Surgical History Surgery Date Site/Laterality Comments APPENDECTOMY [...] of Treatment Not on file Insurance MEDICARE [facility] MEDICARE [facility] Advance Directives For more information, please contact: [phone] * Full Code (Latest Code Status on File) Date Activated Date Inactivated Comments 09/06/2021 5:35 PM 09/08/2021 5:32 PM * Full Code Date Activated Date Inactivated Comments 08/10/2021 2:03 PM 08/10/2021 7:24 PM Care Teams Assistant County Engineer Relationship Specialty Start Date End Date No, Physician PCP - General 09/27/21
--- OUTSIDE RECORDS SUMMARY | 2025-01-05 20:36 | XMS_ITS | Clinical Summary ---
Author Organization [facility] Address [address] [place] [address] Care Team Providers Care Cloth Bleaching Supervisor Name Role Phone Mary Nguyen MD Primary Care Provider [phone] Allergies Active Allergy Reactions Criticality Noted Date [...] this topic Medical Devices Implanted Type Area Vibration Technician Device Identifier Shelf Expiration Date Model / Serial / Lot Noe Depuy Spine 45mm - [id number] Implanted:Qty: 2 on 11/18/2018 by Kirk Clark MD at [facility] Noe N/A: Spine Lumbar [employer] 1797-71-045 / / NA Screw Set Depuy 5.5mm - [id number] Implanted:Qty: 4 on 11/18/2018 by Kirk Clark MD at [facility] Screw N/A: Spine Lumbar [employer] [id number] / / NA Graft Bone Ic Chambers 10cc Lifenet - [id number] Implanted:Qty: 1 on 11/18/2018 by Kirk Clark MD at [facility] N/A: Spine Lumbar [facility] 01/11/2021 [id number] / / [id number] Prolift Expandable Spacer System Implanted:Qty: 1 on 11/18/2018 by Kirk Clark MD at [facility] N/A: Spine Lumbar [employer] 04/04/2020 [id number] / / [id number] Screw Viper Depuy 7 X 45mm - [id number] Implanted:Qty: 4 on 11/18/2018 by Kirk Clark MD at [facility] N/A: Spine Lumbar [employer] [id number] / / Explanted Type Area Vibration Technician Device Identifier Shelf Expiration Date Model / Serial / Lot K-Wire Explanted:Qty: 2 on 11/18/2018 by Kirk Clark MD at [facility] N/A: Spine Lumbar [employer] 2866-07-06 0 / / NA Insurance [facility] Advance Directives * Full Code (Latest Code Status on File) Date Activated Date Inactivated Comments 11/18/2018 11:44 AM 11/19/2018 3:59 PM * Full Code Date Activated Date Inactivated Comments 07/29/2018 8:12 PM 08/02/2018 4:03 PM Care Teams Cloth Bleaching Supervisor Relationship Specialty Start Date End Date Mary Nguyen MD [address] [place] [phone] PCP - General INTERNAL MEDICINE 07/29/18
== END 2025-01-05 13:46 | disposition home or self-care (01) ==
LOC: CHSIMG 13:46
PROVIDERS: PCP Internal Medicine; Visit Provider Internal Medicine
DX: M25.561 Pain in right knee (principal)
CPT/HCPCS: 73562

== ENCOUNTER 2025-02-11 09:09 | Outpatient (CLI) | payer MEDICARE, SELFPAY ==
--- OUTSIDE RECORDS SUMMARY | 2025-02-11 09:14 | XMS_ITS | Clinical Summary ---
Author Organization [facility] Address [address] [place] [address] Care Team Providers Care Caseworker Intake Name Role Phone Mary Nguyen MD Primary Care Provider [phone] Allergies Active Allergy Reactions Criticality Noted Date [...] this topic Medical Devices Implanted Type Area Barrel Loader And Cleaner Device Identifier Shelf Expiration Date Model / Serial / Lot Noe Depuy Spine 45mm - [id number] Implanted:Qty: 2 on 11/18/2018 by Kirk Clark MD at [facility] Noe N/A: Spine Lumbar [employer] 1797-71-045 / / NA Screw Set Depuy 5.5mm - [id number] Implanted:Qty: 4 on 11/18/2018 by Kirk Clark MD at [facility] Screw N/A: Spine Lumbar [employer] [id number] / / NA Graft Bone Ic Chambers 10cc Lifenet - [id number] Implanted:Qty: 1 on 11/18/2018 by Kirk Clark MD at [facility] N/A: Spine Lumbar [facility] 01/11/2021 [id number] / / [id number] Prolift Expandable Spacer System Implanted:Qty: 1 on 11/18/2018 by Kirk Clark MD at [facility] N/A: Spine Lumbar [employer] 04/04/2020 [id number] / / [id number] Screw Viper Depuy 7 X 45mm - [id number] Implanted:Qty: 4 on 11/18/2018 by Kirk Clark MD at [facility] N/A: Spine Lumbar [employer] [id number] / / Explanted Type Area Barrel Loader And Cleaner Device Identifier Shelf Expiration Date Model / Serial / Lot K-Wire Explanted:Qty: 2 on 11/18/2018 by Kirk Clark MD at [facility] N/A: Spine Lumbar [employer] 2866-07-06 0 / / NA Insurance [facility] Advance Directives * Full Code (Latest Code Status on File) Date Activated Date Inactivated Comments 11/18/2018 11:44 AM 11/19/2018 3:59 PM * Full Code Date Activated Date Inactivated Comments 07/29/2018 8:12 PM 08/02/2018 4:03 PM Care Teams Caseworker Intake Relationship Specialty Start Date End Date Mary Nguyen MD [address] [place] [phone] PCP - General INTERNAL MEDICINE 07/29/18
--- OUTSIDE RECORDS SUMMARY | 2025-02-11 09:14 | XMS_ITS | Clinical Summary ---
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 Crush medications for 2 [...] (07/04/2021): Added automatically from request for surgery [id number] Surgical History Surgery Date Site/Laterality Comments APPENDECTOMY [...] of Treatment Not on file Insurance MEDICARE [facility] MEDICARE [facility] Advance Directives For more information, please contact: [phone] * Full Code (Latest Code Status on File) Date Activated Date Inactivated Comments 09/06/2021 5:35 PM 09/08/2021 5:32 PM * Full Code Date Activated Date Inactivated Comments 08/10/2021 2:03 PM 08/10/2021 7:24 PM Care Teams Head Usher Relationship Specialty Start Date End Date No, Physician PCP - General 09/27/21
[2025-02-11 09:31] LABS: Hematocrit 37.9 % (35.0-42.0); Hemoglobin 12.4 g/dL (11.7-13.8); Mean Corpuscular HGB Conc 32.7 g/dL (32-36); Mean Corpuscular Hemoglobin 29.2 pg (27.0-31.0); Mean Corpuscular Volume 89.2 fL (78.0-102.0); Platelet Count Result 300 K/mm3 (150-420); Red Blood Count 4.25 M/mm3 (4.20-5.40); White Blood Count 6.4 K/mm3 (4.8-10.8)
[2025-02-11 09:33] LABS: Add Urine Microscopic? YES; Appearance Urine Clear (Clear); Glucose Urine UA Negative (Negative); Leukocyte Esterase Ur 1+ (Negative); Nitrate Urine Negative (Negative); Specific Grav Ur 1.015 (1.010-1.020)
[2025-02-11 09:45] LABS: Hemoglobin A1C 5.5 % (<5.7)
[2025-02-11 09:48] LABS: MALB Creatinine Ratio 10.8 mg/g (0-30)
[2025-02-11 10:18] LABS: Alanine Aminotransferase 11 U/L (6-35); Albumin Level 4.3 g/dL (3.5-5.1); Alkaline Phosphatase 67 U/L (38-126); Anion Gap 11 mmol/L (4-12); Aspartate Amino Transferase 22 U/L (14-36); Bilirubin,Total 0.4 mg/dL (0.2-1.3); Blood Urea Nitrogen 17 mg/dL (7-17); Calcium 9.7 mg/dL (8.4-10.2); Carbon Dioxide 22 mmol/L (22-30); Chloride 108 mmol/L (98-107); Cholesterol 162 mg/dL (0-200); Creatine Kinase 48 U/L (30-135); Estimated Glomerular Filt Rate > 60; Glucose 110 mg/dL (65-110); HDL Direct 56 mg/dL; Osmolality Calculated 294 mOsm/kg (285-295); Potassium 4.2 mmol/L (3.4-5.0); Sodium 141 mmol/L (137-145); Total Protein 6.6 g/dL (6.3-8.2); Triglycerides 133 mg/dL (<150)
[2025-02-11 10:49] LABS: Thyroid Stimulating Hormone 3.910 uIU/mL (0.465-4.680)
[2025-02-11 18:12] LABS: Vitamin B12 259.0 pg/mL (239-931)
== END 2025-02-11 09:10 | disposition home or self-care (01) ==
LOC: CHSLAB 09:11
PROVIDERS: PCP Internal Medicine; Visit Provider Internal Medicine
DX: E11.9 Type 2 diabetes mellitus without complications (principal); E03.4 Atrophy of thyroid (acquired); I10 Essential (primary) hypertension; E53.8 Deficiency of other specified B group vitamins; E53.9 Vitamin B deficiency, unspecified; E78.2 Mixed hyperlipidemia; G62.9 Polyneuropathy, unspecified; R53.82 Chronic fatigue, unspecified; Z68.30 Body mass index [BMI] 30.0-30.9, adult; M81.0 Age-related osteoporosis without current pathological fracture
CPT/HCPCS: 36415; 80053; 80061; 81001; 82043; 82306; 82550; 82607; 83036; 84443; 85027